=== PATIENT | female | born 1955 ===

== ENCOUNTER → 2021-04-24 14:14 | Outpatient (BNVA) | payer OTHER, SELFPAY | PROVIDERS: PCP Internal Medicine; Visit Provider Nurse Practitioner Gerontology ==

== ENCOUNTER 2022-02-19 08:05 | Outpatient (REF) | payer OTHER, SELFPAY ==
[2022-02-19 08:31] LABS: MANUAL DIFF FLAG NO
[2022-02-19 09:17] LABS: Basophils Absolute Auto 0.1 X10*3/uL (0.0-0.2); Basophils Percent Auto 0.5 % (0-2); Eosinophils Absolute Auto 0.3 X10*3/uL (0.0-0.4); Eosinophils Percent Auto 2.9 % (0-4); Hematocrit 42.9 % (37.0-47.0); Hemoglobin 13.7 g/dl (12.0-16.0); Imm Gran Abs Auto 0.04 X10*3/uL (0.00-0.03); Imm Gran Pct Auto 0.4 % (0.0-0.4); Lymphocytes Percent Auto 19.5 % (20-40); Mean Corpuscular HGB Conc 31.9 g/dl (31.0-35.0); Mean Corpuscular Hemoglobin 28.8 pg (27.0-33.0); Mean Corpuscular Volume 90.1 fL (80.0-98.0); Mean Platelet Volume 12.3 fL (9.4-12.3); Monocytes Absolute Auto 0.9 X10*3/uL (0.1-1.2); Monocytes Percent Auto 8.9 % (2-11); Neutrophils Absolute Auto 6.9 x10*3/uL (2.0-8.3); Neutrophils Percent Auto 67.8 % (45-73); Platelet Count 253 X10*3/uL (160-400); Red Blood Count 4.76 X10*6/uL (4.20-5.50); Red Cell Distribution Width 13.6 % (11.0-16.0); White Blood Count 10.1 X10*3/uL (4.8-10.8)
[2022-02-19 09:55] LABS: Alanine Aminotransferase 28 U/L (0-31); Albumin Level 4.1 g/dL (3.5-5.0); Alkaline Phosphatase 131 U/L (39-117); Anion Gap 18 (12-20); Aspartate Amino Transferase 25 U/L (5-31); Bilirubin Total 0.6 mg/dL (0.0-1.0); Blood Urea Nitrogen 11 mg/dL (9-16); Calcium 9.5 mg/dL (8.4-10.2); Carbon Dioxide 27 mmol/L (22-29); Chloride 98 mmol/L (96-108); Cholesterol 150 mg/dL; Estimated Glomerular Filt Rate > 60; Glucose Fasting 361 mg/dL (60-99); HDL Cholesterol 48 mg/dL; LDL Cholesterol Calculated 84 mg/dl; Potassium 4.3 mmol/L (3.3-5.1); Sodium 139 mmol/L (135-145); Total Protein 6.9 g/dL (6.5-8.0); Triglycerides 93 mg/dL
[2022-02-19 10:00] LABS: Creatinine Urine 273.57 mg/dL
[2022-02-19 10:02] LABS: Vitamin D 25-OH Total 60.2 ng/mL (>30)
== END 2022-02-19 08:06 | disposition home or self-care (01) ==
LOC: HO.US 08:05
PROVIDERS: Absent Provider Internal Medicine; PCP Internal Medicine; Visit Provider Surgery Vascular Surgery
DX: E11.65 Type 2 diabetes mellitus with hyperglycemia (principal); I83.12 Varicose veins of left lower extremity with inflammation; E55.9 Vitamin D deficiency, unspecified; E78.5 Hyperlipidemia, unspecified; J45.40 Moderate persistent asthma, uncomplicated; Z79.4 Long term (current) use of insulin; Z78.0 Asymptomatic menopausal state
CPT/HCPCS: 36415; 80053; 80061; 82043; 82306; 85025

== ENCOUNTER 2022-04-17 12:51 | Outpatient (REF) | payer OTHER, SELFPAY ==
--- NOTE | ~2022-04-17 | US_ITS ---
EXAMINATION: US LOWER EXTREMITY VENOUS (REFLUX EXAM), BILATERAL CLINICAL INDICATION: Varicose veins COMPARISON: Bilateral lower extremity duplex on 05/06/2012 TECHNIQUE: Color flow triplex imaging and compression Doppler was performed to evaluate both the deep and the superficial systems bilaterally. To evaluate the superficial system, the examination was performed in the upright position. Color-flow Doppler ultrasound and compression ultrasound were utilized. In addition, maneuvers were utilized to demonstrate reflux. FINDINGS: 1. DEEP VENOUS ULTRASOUND OF THE RIGHT LOWER EXTREMITY: Common Femoral Vein: Compressible, normal respiratory variation and augmented flow. Femoral Vein: Compressible, normal color flow and augmentation. Popliteal Vein: Compressible, normal augmentation. Deep Reflux: There is no evidence of reflux in the deep system in either the common femoral vein or the popliteal vein. There is no evidence of a Gorman's cyst. 2. SUPERFICIAL ULTRASOUND WITH DOPPLER OF RIGHT LOWER EXTREMITY: GREAT SAPHENOUS VEIN: Saphenofemoral Junction: 0.7 cm; Reflux: 0 ms Proximal Thigh: 0.3 cm; Reflux: 0 ms Mid Thigh: 0.2 cm; Reflux: 0 ms Above Knee: 0.3 cm; Reflux: 0 ms At Knee: 0.3 cm; Reflux: 0 ms Below Knee: 0.3 cm; Reflux: 0 ms Mid Calf: 0.2 cm; Reflux: 0 ms Ankle: 0.3 cm; Reflux: 0 ms DUPLICATED MEDIAL GREAT SAPHENOUS VEIN: Diameter: None Imaged Reflux: NA DUPLICATED LATERAL GREAT SAPHENOUS VEIN: Diameter: None Imaged Reflux: NA SMALL SAPHENOUS VEIN: Proximal: 0.4 cm; Reflux: 0 ms Distal: 0.4 cm; Reflux: 0 ms VEIN OF GIACOMINI: None Imaged. PERFORATORS: Location: [place] Size: 0.2 cm Reflux: 1428 ms VARICOSITIES: Location: None Imaged Size: NA Reflux: NA 3. DEEP VENOUS ULTRASOUND OF THE LEFT LOWER EXTREMITY: Common Femoral Vein: Compressible, normal respiratory variation and augmented flow. Femoral Vein: Compressible, normal color flow and augmentation. Popliteal Vein: Compressible, normal augmentation. Deep Reflux: There is no evidence of reflux in the deep system in either the common femoral vein or the popliteal vein. There is no evidence of a Gorman's cyst. 4. SUPERFICIAL ULTRASOUND WITH DOPPLER OF LEFT LOWER EXTREMITY: GREAT SAPHENOUS VEIN: Saphenofemoral Junction: 0.7 cm; Reflux: 0 ms Proximal Thigh: 0.8 cm; Reflux: 0 ms Mid Thigh: 0.5 cm; Reflux: 0 ms Above Knee: 0.4 cm; Reflux: 0 ms At Knee: 0.4 cm; Reflux: 0 ms Below Knee: 0.3 cm; Reflux: 0 ms Mid Calf: 0.3 cm; Reflux: 0 ms Ankle: 0.3 cm; Reflux: 0 ms DUPLICATED MEDIAL GREAT SAPHENOUS VEIN: Diameter: None Imaged Reflux: NA DUPLICATED LATERAL GREAT SAPHENOUS VEIN: Diameter: None Imaged Reflux: NA SMALL SAPHENOUS VEIN: Proximal: 0.4 cm; Reflux: 0 ms Distal: 0.2 cm; Reflux: 0 ms VEIN OF GIACOMINI: None Imaged. PERFORATORS: Location: None Imaged Size: NA Reflux: NA VARICOSITIES: Location: None Imaged Size: NA Reflux: NA US/US venous duplex LE BI IMPRESSION: 1. No evidence of DVT. 2. Right small saphenous vein reflux in the midcalf. 3. No significant reflux in the bilateral great saphenous veins or small saphenous veins.
== END 2022-04-17 12:52 | disposition home or self-care (01) ==
LOC: HO.US 12:51
PROVIDERS: Visit Provider Surgery Vascular Surgery
DX: I83.12 Varicose veins of left lower extremity with inflammation (principal)
CPT/HCPCS: 93970

== ENCOUNTER 2022-05-20 16:01 | Outpatient (REF) | payer OTHER, SELFPAY ==
[2022-05-24 05:48] LABS: HPV mRNA E6/E7 rflx Not Detected (Not Detected)
== END 2022-05-20 16:02 | disposition home or self-care (01) ==
LOC: HO.LNP 16:01
PROVIDERS: Visit Provider Obstetrics & Gynecology
DX: Z01.419 Encounter for gynecological examination (general) (routine) without abnormal findings (principal); Z11.51 Encounter for screening for human papillomavirus (HPV)
CPT/HCPCS: 87624; 88142

== ENCOUNTER 2022-07-18 11:58 | Outpatient (REF) | payer OTHER, SELFPAY | END 2022-07-18 11:59 | disposition home or self-care (01) | LOC: HO.LNP 11:58 | PROVIDERS: PCP Internal Medicine; Visit Provider Obstetrics & Gynecology | DX: L02.215 Cutaneous abscess of perineum (principal) | CPT/HCPCS: 87070; 87205 ==

== ENCOUNTER 2022-08-07 16:02 | Outpatient (REF) | payer OTHER, SELFPAY ==
--- NOTE | ~2022-08-07 | US_ITS ---
EXAMINATION: US PELVIS AND TRANSVAGINAL CLINICAL INFORMATION: Postmenopausal bleeding. COMPARISON: 10/04/2016 TECHNIQUE: Ultrasound of the pelvis is performed using both transabdominal and transvaginal transducers along with Doppler. Transvaginal imaging is performed due to inadequate visualization transabdominally. FINDINGS: UTERUS: The uterus is anteverted and measures 8.6 x 4.8 x 4.2 cm. The double wall endometrial thickness is increased at 19 mm. The endometrium is heterogeneous with cystic components, similar to the prior study from 10/04/2016. The uterus is smooth in contour and has normal myometrial echogenicity. No visible fibroid. ADNEXA: Both ovaries are visualized. There is normal color flow to the adnexa. There is no ovarian torsion. There is no pelvic ascites or fluid collection. Right ovary measures 2.3 x 1.9 x 2.2 cm for a volume of 5.0 mL. Left ovary could not be visualized. US/US pelvic and transvaginal IMPRESSION: Thickened heterogeneous endometrium with cystic components. Although appearances were similar at the time of the 2017 study, given the patient's postmenopausal status, tissue sampling is recommended, if this has not already been performed.
== END 2022-08-07 16:03 | disposition home or self-care (01) ==
LOC: HO.US 16:02
PROVIDERS: PCP Internal Medicine; Visit Provider Obstetrics & Gynecology
DX: N95.0 Postmenopausal bleeding (principal)
CPT/HCPCS: 76830; 76856

== ENCOUNTER 2022-08-19 12:21 | Outpatient (REF) | payer OTHER, SELFPAY ==
[2022-08-19 15:10] LABS: Appearance Urine Clear; Color Urine Yellow; Glucose Urine UA >=1000 mg/dL (Negative); Leukocyte Esterase Urine Negative (Negative); Nitrite Urine Negative (Negative); PH 6.5 (5.0-9.0); Specific Gravity - Urine 1.025 (1.005-1.025); UMIC TRIGGER UACC YES; Urine Blood Negative (Negative); Urine Ketones Negative (Negative); Urine Protein Negative (Neg-Trace)
[2022-08-19 15:39] LABS: Bacteria Urine None Seen (None Seen); Hyaline Casts Urine 0-2 /LPF (0-2); RBC Urine 0-2 /HPF (0-2); Squamous Epithelial Cell Urine 0-2 /HPF (0-2); UACC Culture Trigger YES
== END 2022-08-19 12:22 | disposition home or self-care (01) ==
LOC: HO.LAB 12:21
PROVIDERS: PCP Internal Medicine; Visit Provider Internal Medicine
DX: R30.0 Dysuria (principal)
CPT/HCPCS: 81001; 81003; 87086

== ENCOUNTER → 2022-08-20 15:29 | Outpatient (BNVA) | payer OTHER, SELFPAY | PROVIDERS: PCP Internal Medicine; Visit Provider Obstetrics & Gynecology | DX: Z13.89 Encounter for screening for other disorder (principal) ==

== ENCOUNTER → 2022-08-21 14:51 | Outpatient (BNVA) | payer OTHER, SELFPAY | PROVIDERS: PCP Internal Medicine; Visit Provider Obstetrics & Gynecology | DX: Z13.89 Encounter for screening for other disorder (principal) ==

== ENCOUNTER → 2022-09-23 12:44 | Outpatient (REF) | payer OTHER, SELFPAY ==
--- NOTE | 2022-09-23 12:52 | ECG_ITS ---
Test Reason : PREPROC EXAM Blood Pressure : / mmHG Vent. Rate : 100 BPM Atrial Rate : 100 BPM P-R Int : 150 ms QRS Dur : 074 ms QT Int : 344 ms P-R-T Axes : 047 043 071 degrees QTc Int : 443 ms Normal sinus rhythm Normal ECG When compared with ECG of 18-FEB-2018 12:35, No significant change was found Referred By: Ave Goyal Electronically Signed By:Kevin Giordano
== END ==
LOC: HO.CARD 12:44
PROVIDERS: PCP Internal Medicine; Visit Provider Internal Medicine
DX: Z01.810 Encounter for preprocedural cardiovascular examination (principal)
CPT/HCPCS: 93005

== ENCOUNTER → 2022-10-24 14:51 | Outpatient (BNVA) | payer OTHER, SELFPAY | PROVIDERS: PCP Internal Medicine; Visit Provider Surgery Vascular Surgery ==

== ENCOUNTER 2022-12-16 15:35 | Outpatient (AMB) | payer OTHER, SELFPAY ==
[2022-12-16 15:41] VITALS: BP 130/70; BMI 51.0
--- NOTE | 2022-12-16 15:41 | MHC.PC.OV ---
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: No Accompanied by: Self / Same As Patient Allergies lisinopril [LISINOPRIL] Allergy (Intermediate, Verified 12/16/22 15:53) COUGH nystatin [From Nystop] Allergy (Intermediate, Verified 12/16/22 15:53) RASH, ITCHY ( FROM TOPICAL POWDER), rash shrimp Allergy (Intermediate, Verified 12/16/22 15:53) Anaphylaxis, swollen insulin detemir [From Levemir U-100 Insulin] Adverse Reaction (Intermediate, Verified 12/16/22 15:58) Abdominal Pain insulin glargine [From Toujeo SoloStar U-300 Insulin] Adverse Reaction (Intermediate, Verified 12/16/22 15:58) Abdominal Pain Medication List - Last Reconciled 12/16/[address] Goyal MD albuterol sulfate 90 mcg/actuation (ProAir RespiClick) 2 inhalations inhalation QID PRN 30 days albuterol sulfate 2.5 mg (3 mL) PO QID PRN albuterol sulfate 90 mcg/actuation (ProAir HFA) 2 puffs inhalation Q6H PRN 30 days aspirin 81 mg PO DAILY 90 days atorvastatin 40 mg PO BEDTIME 90 days blood sugar diagnostic ([employer] Company[employer] Ultra Blue Test Strip) 1 strip miscellaneous BID buspirone 7.5 mg PO BID cetirizine (Allergy Relief (cetirizine)) 10 mg PO DAILY PRN 90 days hydrochlorothiazide 25 mg PO DAILY 90 days insulin glargine (Lantus Solostar U-100 Insulin) 50 units (0.5 mL) subcut QPM 90 days insulin regular hum U-500 conc (Humulin R U-500 (Concentrated) Insulin) 150 units subcut BID insulin regular hum U-500 conc (Humulin R U-500 (Conc) Insulin Kwikpen) 150 units subcut BID metformin 1,000 mg PO BID 90 days pen needle, diabetic (BD Ultra-Fine Short Pen Needle) To use 4 times daily pen needle, diabetic (BD Ultra-Fine Short Pen Needle) Use 1 needle once a day [pen needles 31 gauge x 8 mm As directed] sertraline 25 mg PO DAILY 90 days sitagliptin phosphate (Januvia) 100 mg PO DAILY valsartan 320 mg PO DAILY 90 days Tobacco use date assessed: 12/16/22 Fall risk assessment: No Falls in past year Last assessed Fall Risk: 12/16/22 Dental Screening Dental Screen Date: 12/16/22 Did you have a dental visit in the last 12 months?: No Did you have a dental problem in the last 6 months where you did not have access to dental care?: No Was dental information given to patient?: Patient has dentist HPI HPI Comments History of Present Illness Details This is a 67-year-old female with diabetes mellitus type 2, hypertension, pure hypercholesterolemia and morbid obesity that comes today complaining of a cough. She completed a course of prednisone and Z-Kyle. No fever and no wheezing. A1c elevated and I will refer her to Endocrinology and increase her insulin. Blood pressure stable. Last LDL was within goal and this will be repeated. She is morbidly obese with a BMI of 51 and declines weight loss surgery. Was advised to do diet and exercise as tolerated. [facility] Medical History Diabetes mellitus DM2 (diabetes mellitus, type 2) Essential hypertension Hypovitaminosis D Moderate asthma Obesity due to excess calories Pure hypercholesterolemia Venous (peripheral) insufficiency Surgical History History of cataract surgery History of section History of vocal cord polypectomy Family History Father No problems noted. Mother Colon cancer Lung cancer CVD (cardiovascular disease) Diabetes Hypertension Brother Stroke Brother Melanoma Maternal Uncle Cancer Social History Household Members: Spouse Housing: House Alcohol intake: never Patient Tobacco Use Status: Never used Tobacco e-Cigarette/Vaping Use: Never Used Second Hand Smoke Exposure: No service: No Current occupational status: unemployed Cognitive needs: Yes Hearing needs: No Vision needs: No Female Reproductive History Menstrual Age of Menarche: 14 Questionnaire PHQ-9 Over the last 2 weeks, how often have you been bothered by any of the following problems? 1. Little interest or pleasure in doing things: not at all 2. Feeling down, depressed, or hopeless: not at all 3. Trouble falling or staying asleep, or sleeping too much: not at all 4. Feeling tired or having little energy: not at all 5. Poor appetite or overeating: not at all 6. Feeling bad about yourself - or that you are a failure or have let yourself or your family down: not at all 7. Trouble concentrating on things, such as reading the newspaper or watching television: not at all 8. Moving or speaking so slowly that other people could have noticed. Or the opposite - being so fidgety or restless that you have been moving around a lot more than usual: not at all 9. Thoughts that you would be better off or of hurting yourself in some way: not at all Total score: 0 Depression Screening Interpretation: Negative 22987 - PHQ-9 Billing: Yes Source: Developed by Drs. Marco Paul, Nadiya Wallace, Manav Sun and colleagues, with an educational kimberly from [employer]. Thrive Questionnaire Date Thrive assessed: 12/16/22 I am a: Patient What is your living situation today?: I have a steady place to live Within the past 12 months, did the food you bought not last and you didn't have the money to get more?: Never true Within the past 12 months, did you worry whether your food would run out before you got money to buy more?: Never true Do you have trouble paying for medicines?: No Do you have trouble getting transportation to medical appointments?: No Do you have trouble paying your heating and electricity bill?: No Do you have trouble taking care of your child, family member or friend?: No Do you have trouble with day-to-day activities such as bathing, preparing meals, shopping, managing finances, etc.?: No Are you currently unemployed and looking for a job?: No Are you interested in more education?: No Please select the resources that you would like help with: None Currently or been in a relationship where the following occur: no concerns reported AUDIT C Alcohol Use Questionnaire (AUDIT-C) 1. How often do you have a drink containing alcohol?: Never Total Score: 0 SHAD-7 AMB Questionnaire SHAD-7 Date SHAD - 7 assessed: 12/16/22 Feeling nervous, anxious, or on edge: 0 = Not at all Not being able to stop or control worryin = Not at all Worrying too much about different things: 0 = Not at all Trouble relaxin = Not at all Being so restless that it is hard to sit still: 0 = Not at all Becoming easily annoyed or irritable: 0 = Not at all Feeling afraid as if something awful might happen: 0 = Not at all Total SHAD-7 score (0-4 normal; 5-9 mild; 10-14 moderate; 15-21 severe): 0 Source: Developed by Drs. Marco Paul, Nadiya Wallace, Manav Sun and colleagues, with an educational kimberly from [employer]. SHAD-7 Assessment Billing SHAD-7 Assessment Tool: SHAD-7 Assessment 73149 Review of Systems Const All systems reviewed & are unremarkable except as noted in HPI and below Eyes Reports no additional complaints, Denies change in vision and Denies other visual disturbances Card Denies chest pain at rest, Denies chest pain with activity, Denies edema, Denies irregular heart rhythm, Denies claudication, Denies dyspnea, Denies dyspnea on exertion, Denies orthopnea, Denies paroxysmal nocturnal dyspnea and Denies slow heart rate Resp Reports cough, Denies dyspnea and Denies dyspnea on exertion GI Denies abdominal pain, Denies change in bowel habits, Denies excessive flatus, Denies nausea and Denies vomiting Denies urinary incontinence, Denies urinary hesitancy and Denies urinary urgency Musc Denies abnormal gait, Denies atrophy, Denies deformity and Denies limited range of motion Skin/Breast Denies bleeding lesions, Denies changing lesions and Denies rash Neuro Denies abnormal gait and Denies lack of coordination Physical exam (Primary Care) Vital Signs: Last Vital Signs BP 130/70 12/16/22 15:41 BMI result Body Mass Index 51.0 Tobacco/Smoking Status: Tobacco use Status Tobacco use date assessed 12/16/22 12/16/22 15:50 Patient Tobacco Use Status Never used Tobacco 12/16/22 15:50 e-Cigarette/Vaping Use Never Used 12/16/22 15:50 PHQ-9: PHQ-9 Score PHQ-9: Total score 0 12/16/22 15:50 Depression Screening Interpretation: Negative Thrive Assessment: Date of Thrive Assessment Date Thrive assessed 12/16/22 12/16/22 15:50 Currently or been in a relationship where the following occur: no concerns reported Eyes General: appearance normal, both eyes and all related structures Eyelids: Yes eyelids normal Conjunctivae: conjunctivae normal Neck Neck: Yes normal visual inspection and Yes supple Resp Effort & Inspection: normal respiratory effort Auscultation: clear to auscultation bilaterally Cardio Jugular venous distension: no JVD Rate: regular rate Rhythm: regular rhythm Heart sounds: S1 normal heart sound present and S2 normal heart sound present Extrem General: Yes full ROM Results AMB Hemoglobin A1c AMB Hemoglobin A1c 14.0 % Last Edit by KHALIDA Kee on 12/16/22 15:52 Results Reviewed Results Reviewed: Laboratory Last Values Hgb A1c (Clinic) 14.0 % (4.0-6.0) H 12/16/22 15:51 Assessment and Plan Assessment & Plan (1) Morbidly obese: Code(s): E66.01 - Morbid (severe) obesity due to excess calories Plan: Start diet and exercise. BMI goal is less than 30. (2) DM2 (diabetes mellitus, type 2): Code(s): E11.9 - Type 2 diabetes mellitus without complications Qualifiers: Diabetes mellitus buttermaker continuous churn insulin use: with buttermaker continuous churn use Diabetes mellitus complication status: with hyperglycemia Qualified Code(s): E11.65 - Type 2 diabetes mellitus with hyperglycemia; Z79.4 - custodial (current) use of insulin Plan: Continue short-acting insulin. Increase long-acting insulin from 50 units to 55 units once a day. A1c goal is equal or less than 7%. (3) Essential hypertension: Code(s): I10 - Essential (primary) hypertension Plan: Continue Valsartan. Blood pressure goal is equal or less than 130/80. (4) Pure hypercholesterolemia: Code(s): E78.00 - Pure hypercholesterolemia, unspecified Plan: Continue statins. Repeat lipid panel. LDL goal is less than 70. Orders: Orders Lipid Panel Today E78.5 - Hyperlipidemia, unspecified Microalbumin, Random (w Creat) Today E11.9 - Type 2 diabetes mellitus without complications Vitamin D 25-OH Total Today E55.9 - Vitamin D deficiency, unspecified Comprehensive [place]. Panel Fast Today E11.65 - Type 2 diabetes mellitus with hyperglycemia, Z79.4 - lobsterman (current) use of insulin AMB Hemoglobin A1c Today E11.9 - Type 2 diabetes mellitus without complications Referrals Endocrinology Referral E11.65 - Type 2 diabetes mellitus with hyperglycemia, Z79.4 - lobsterman (current) use of insulin Medications: New benzonatate 100 mg PO BID 10 days PRN 20 caps 0RF cough Changed From insulin regular hum U-500 conc (Humulin R U-500 (Concentrated) Insulin) 200 units (0.4 mL) subcut BID 30 days 24 mL 6RF To insulin regular hum U-500 conc (Humulin R U-500 (Concentrated) Insulin) 150 units subcut BID From insulin glargine (Lantus Solostar U-100 Insulin) 50 units (0.5 mL) subcut QPM 90 days 45 mL 2RF E11.65 - Type 2 diabetes mellitus with hyperglycemia, Z79.4 - custodial (current) use of insulin To insulin glargine (Lantus Solostar U-100 Insulin) 55 units (0.55 mL) subcut QPM 90 days 49.5 mL 2RF E11.65 - Type 2 diabetes mellitus with hyperglycemia, Z79.4 - lobsterman (current) use of insulin Discontinued albuterol sulfate 90 mcg/actuation (ProAir RespiClick) Discontinued Reason: Patient Completed Course 2 inhalations inhalation QID 30 days PRN 1 ea 4RF shortness of breath Coding Level of Care Code Est Pt Level 4 (27094) Diagnoses Morbidly obese E66.01 DM2 (diabetes mellitus, type 2) E11.65; Z79.4 Diabetes mellitus buttermaker continuous churn insulin use: with buttermaker continuous churn use Diabetes mellitus complication status: with hyperglycemia Essential hypertension I10 Pure hypercholesterolemia E78.00 Additional Codes SHAD-7 Assessment Billing - SHAD-7 Assessment Tool: SHAD-7 Assessment 73266 ([id number]) Time Spent (min) 23
== END 2022-12-16 16:08 | disposition home or self-care (01) ==
PROVIDERS: PCP Internal Medicine; Visit Provider Internal Medicine
DX: E11.65 Type 2 diabetes mellitus with hyperglycemia (principal); E66.01 Morbid (severe) obesity due to excess calories; Z79.4 Long term (current) use of insulin; Z68.43 Body mass index [BMI] 50.0-59.9, adult; I10 Essential (primary) hypertension; E11.9 Type 2 diabetes mellitus without complications; E78.00 Pure hypercholesterolemia, unspecified
CPT/HCPCS: 83036; 99214

== ENCOUNTER 2023-04-04 11:06 | Outpatient (REF) | payer OTHER, SELFPAY ==
[2023-04-04 12:44] LABS: Anion Gap 14 (12-20); Blood Urea Nitrogen 8 mg/dL (9-16); Calcium 9.7 mg/dL (8.4-10.2); Carbon Dioxide 29 mmol/L (22-29); Chloride 100 mmol/L (96-108); Estimated Glomerular Filt Rate > 60; Potassium 4.1 mmol/L (3.3-5.1); Sodium 139 mmol/L (135-145)
[2023-04-04 14:22] LABS: Creatinine Urine 59.21 mg/dL; Total Protein Urine Random < 7 mg/dL (<12)
[2023-04-07 23:09] LABS: Prot Elec - Albumin 3.9 g/dL (3.8-4.8); Prot Elec - Alpha1 0.3 g/dL (0.2-0.3); Prot Elec - Beta 1 0.5 g/dL (0.4-0.6); Prot Elec - Beta 2 0.4 g/dL (0.2-0.5); Prot Elec - Gamma 0.8 g/dL (0.8-1.7); Prot Elec - Total Protein 6.9 g/dL (6.1-8.1)
== END 2023-04-04 11:07 | disposition home or self-care (01) ==
LOC: HO.LAB 11:06
PROVIDERS: PCP Internal Medicine; Visit Provider Internal Medicine Nephrology
DX: R80.9 Proteinuria, unspecified (principal)
CPT/HCPCS: 36415; 80051; 82310; 82565; 82570; 84156; 84165; 84520

== ENCOUNTER 2023-04-07 15:02 | Outpatient (AMB) | payer OTHER, SELFPAY ==
[2023-04-07 15:23] VITALS: BP 150/70; PULSE 107; BMI 51.5
--- NOTE | 2023-04-07 15:23 | HO.NEPHOV ---
HPI HPI Comments History of Present Illness Details Claudette has longstanding diabetes. She has history of microalbuminuria. She was seen for follow-up. I have initiated her on Farxiga at the last visit. She had vaginal candidiasis and had taken treatment with total resolution of it. She does not have any urinary symptoms, fever, chest pain, shortness of breath, nausea, vomiting, diarrhea or pedal edema. Her A1c has significantly improved. She is trying to lose weight and is closely followed by her PCP and general lot attendant. She is on angiotensin receptor jose luis. Her blood pressure has been at goal. [facility] Medical History Venous (peripheral) insufficiency Obesity due to excess calories DM2 (diabetes mellitus, type 2) Moderate asthma Hypovitaminosis D Pure hypercholesterolemia Essential hypertension Diabetes mellitus Surgical History History of cataract surgery History of vocal cord polypectomy History of section Family History Father No problems noted. Mother Colon cancer Lung cancer CVD (cardiovascular disease) Diabetes Hypertension Brother Stroke Brother Melanoma Maternal Uncle Cancer Social History Household Members: Spouse Housing: House Alcohol intake: never Patient Tobacco Use Status: Never used Tobacco e-Cigarette/Vaping Use: Never Used Second Hand Smoke Exposure: No service: No Current occupational status: unemployed Cognitive needs: Yes Hearing needs: No Vision needs: No Female Reproductive History Menstrual Age of Menarche: 14 Vital Signs 04/07/23 15:23 04/07/23 15:39 Height 5 ft 2 in Weight 281 lb 8 oz BMI 51.5 BP 150/70 H 120/80 Blood Pressure Location Lt brachial Position Sitting Pulse 107 H Pulse Source Pulse Oximeter Physical Exam Vital Signs: Last Vital Signs Pulse 107 H 04/07/23 15:23 BP 120/80 04/07/23 15:39 BMI result Body Mass Index 51.5 Const General: comfortable and no acute distress Orientation/consciousness: patient oriented x3 HEENT Head: Yes normocephalic Mouth: Normal oral and palatal mucosa present Eyes EOM: EOMs intact bilaterally Neck Neck: Yes supple Resp Auscultation: clear to auscultation bilaterally Cardio Jugular venous distension: no JVD Rate: regular rate Heart sounds: Murmur heart sound present GI Palpation (GI): Soft to palpation Auscultation: normal bowel sounds General: Yes no CVA tenderness Back/Spine/Pelvis Back: no CVA tenderness Skin General skin exam: no rashes or lesions noted Neuro General: patient oriented x3 and moves all extremities Extrem General: Yes no pedal edema Assessment & Plan Assessment & Plan (1) Microalbuminuria: Code(s): R80.9 - Proteinuria, unspecified (2) Essential hypertension: Code(s): I10 - Essential (primary) hypertension Plan Ms. Lynch has history of microalbuminuria. She has obesity. Her blood sugars are getting better controlled. She is tolerating Farxiga. She needs to lose weight. She is at risk for secondary FSGS. She is tolerating current dose of ARB & Farxiga. She needs close follow up with her general lot attendant. She should avoid nonsteroidal anti-inflammatory medications and remain well hydrated. I did not make any changes today. All her questions were answered. Follow-up given and follow-up per 24 urine collection study was ordered. Time for retrieval of data, patient encounter and documenation 23 minutes. Orders: Orders Protein, 24 Hr Urine Group 04/07/23 R80.9 - Proteinuria, unspecified Coding Level of Care Code Est Pt Level 3 (77193) Diagnoses Microalbuminuria R80.9 Essential hypertension I10
[2023-04-07 15:39] VITALS: BP 120/80
== END 2023-04-07 15:44 | disposition home or self-care (01) ==
PROVIDERS: PCP Internal Medicine; Visit Provider Internal Medicine Nephrology
DX: R80.9 Proteinuria, unspecified (principal); I10 Essential (primary) hypertension; Z87.448 Personal history of other diseases of urinary system
CPT/HCPCS: 99213

== ENCOUNTER → 2023-04-07 15:02 | Outpatient (BNVA) | payer OTHER, SELFPAY | PROVIDERS: PCP Internal Medicine; Visit Provider Internal Medicine Nephrology ==

== ENCOUNTER 2023-07-14 08:20 | Outpatient (AMB) | payer OTHER, SELFPAY ==
[2023-07-14 08:31] VITALS: BP 132/60; BMI 49.7
--- NOTE | 2023-07-14 08:31 | A.OFFPC_ITS ---
Vital Signs 07/14/23 08:31 Height 5 ft 2 in Weight 272 lb BMI 49.7 BP 132/60 Blood Pressure Location Lt brachial Position Sitting Intake Visit Reasons: pre-op [facility] Intake Note: Patient here for [facility] pre-op clearance Hysterectomy 08/26/23 Inletter Required: No Accompanied by: Self / Same As Patient Allergies lisinopril [LISINOPRIL] Allergy (Intermediate, Verified 07/14/23 08:45) COUGH nystatin [From Nystop] Allergy (Intermediate, Verified 07/14/23 08:45) RASH, ITCHY ( FROM TOPICAL POWDER), rash shrimp Allergy (Intermediate, Verified 07/14/23 08:45) Anaphylaxis, swollen dulaglutide [From Trulicity] Adverse Reaction (Intermediate, Verified 07/14/23 09:00) Nausea and Vomiting insulin detemir [From Levemir U-100 Insulin] Adverse Reaction (Intermediate, Verified 07/14/23 08:45) Abdominal Pain insulin glargine [From Toujeo SoloStar U-300 Insulin] Adverse Reaction (Intermediate, Verified 07/14/23 08:45) Abdominal Pain Medication List - Last Reconciled 07/14/[address] Goyal MD albuterol sulfate 2.5 mg (3 mL) PO QID PRN albuterol sulfate 90 mcg/actuation (ProAir HFA) 2 puffs inhalation Q6H PRN 30 days aspirin 81 mg PO DAILY 90 days atorvastatin 40 mg PO BEDTIME 90 days blood sugar diagnostic (BooyahTouch Ultra Test strips) test 4 times per day blood sugar diagnostic 1 strip miscellaneous BID buspirone 7.5 mg PO BID cetirizine (Allergy Relief (cetirizine)) 10 mg PO DAILY PRN 90 days dapagliflozin propanediol (Farxiga) 5 mg PO DAILY 30 days hydrochlorothiazide 25 mg PO DAILY 90 days insulin glargine (Lantus Solostar U-100 Insulin) 55 units (0.55 mL) subcut QPM 90 days insulin regular hum U-500 conc (Humulin R U-500 (Concentrated) Insulin) 125 units subcut BID medroxyprogesterone (Provera) 10 mg PO DAILY metformin 1,000 mg PO BID 90 days montelukast 10 mg PO BEDTIME 90 days pen needle, diabetic (BD Ultra-Fine Short Pen Needle) To use 4 times daily pen needle, diabetic (BD Ultra-Fine Short Pen Needle) Use 1 needle once a day [pen needles 31 gauge x 8 mm As directed] sertraline 25 mg PO DAILY 90 days sitagliptin phosphate (Januvia) 100 mg PO DAILY valsartan 320 mg PO DAILY 90 days Ventolin HFA 90 mcg/actuation (albuterol sulfate) 2 puffs inhalation Q6H PRN 30 days NS Tobacco use date assessed: 07/14/23 Fall risk assessment: No Falls in past year Last assessed Fall Risk: 07/14/23 Dental Screening Dental Screen Date: 07/14/23 Did you have a dental visit in the last 12 months?: No Did you have a dental problem in the last 6 months where you did not have access to dental care?: No Was dental information given to patient?: Patient has dentist HPI HPI Comments History of Present Illness0 Details This is a 67-year-old female with diabetes mellitus type 2 on long-term current use insulin, hypertension, pure hypercholesterolemia and moderate asthma that comes today for preop evaluation for hysterectomy scheduled for August 2023. Her A1c is elevated and I will increase insulin and Farxiga. Januvia was replaced by Ozempic. Blood pressure stable. Lipid panel will be order. On long-acting inhaler and use rescue inhaler as needed for her asthma which is 2 to 3 times a month. She is morbidly obese with a BMI of 49.7 and was advised to do diet and exercise as tolerated to reach BMI goal less than 30. Walks with a walker for gait stability. Has 4 Mets of ADLs. EKG and labs pending for medical clearance. Will see crime prevention worker next month for clearance. [facility] Medical History Venous (peripheral) insufficiency Obesity due to excess calories DM2 (diabetes mellitus, type 2) Moderate asthma Hypovitaminosis D Pure hypercholesterolemia Essential hypertension Diabetes mellitus Surgical History History of cataract surgery History of vocal cord polypectomy History of section Family History Father No problems noted. Mother Colon cancer Lung cancer CVD (cardiovascular disease) Diabetes Hypertension Brother Stroke Brother Melanoma Maternal Uncle Cancer Social History Household Members: Spouse Housing: House Alcohol intake: never Patient Tobacco Use Status: Never used Tobacco e-Cigarette/Vaping Use: Never Used Second Hand Smoke Exposure: No service: No Current occupational status: unemployed Cognitive needs: Yes Hearing needs: No Vision needs: No Female Reproductive History Menstrual Age of Menarche: 14 Questionnaire PHQ-9 Over the last 2 weeks, how often have you been bothered by any of the following problems? 1. Little interest or pleasure in doing things: not at all 2. Feeling down, depressed, or hopeless: not at all 3. Trouble falling or staying asleep, or sleeping too much: not at all 4. Feeling tired or having little energy: not at all 5. Poor appetite or overeating: not at all 6. Feeling bad about yourself - or that you are a failure or have let yourself or your family down: not at all 7. Trouble concentrating on things, such as reading the newspaper or watching television: not at all 8. Moving or speaking so slowly that other people could have noticed. Or the opposite - being so fidgety or restless that you have been moving around a lot more than usual: not at all 9. Thoughts that you would be better off or of hurting yourself in some way: not at all Total score: 0 Depression Screening Interpretation: Negative Depression Screening Done: Yes 82176 - PHQ-9 Billing: Yes Source: Developed by Drs. Marco Paul, Nadiya Wallace, Manav Sun and colleagues, with an educational kimberly from [employer]. Thrive Questionnaire Date Thrive assessed: 07/14/23 I am a: Patient What is your living situation today?: I have a steady place to live Within the past 12 months, did the food you bought not last and you didn't have the money to get more?: Never true Within the past 12 months, did you worry whether your food would run out before you got money to buy more?: Never true Do you have trouble paying for medicines?: No Do you have trouble getting transportation to medical appointments?: No Do you have trouble paying your heating and electricity bill?: No Do you have trouble taking care of your child, family member or friend?: No Do you have trouble with day-to-day activities such as bathing, preparing meals, shopping, managing finances, etc.?: Yes Are you currently unemployed and looking for a job?: No Are you interested in more education?: No Please select the resources that you would like help with: None Currently or been in a relationship where the following occur: no concerns reported THRIVE Score: 0 AUDIT C Alcohol Use Questionnaire (AUDIT-C) 1. How often do you have a drink containing alcohol?: Never Total Score: 0 Score Reviewed/Action Taken: No SHAD-7 AMB Questionnaire SHAD-7 Date SHAD - 7 assessed: 07/14/23 Feeling nervous, anxious, or on edge: 1 = Several days Not being able to stop or control worryin = Not at all Worrying too much about different things: 0 = Not at all Trouble relaxin = Not at all Being so restless that it is hard to sit still: 0 = Not at all Becoming easily annoyed or irritable: 0 = Not at all Feeling afraid as if something awful might happen: 0 = Not at all Total SHAD-7 score (0-4 normal; 5-9 mild; 10-14 moderate; 15-21 severe): 1 Source: Developed by Drs. Marco Paul, Nadiya Wallace, Manav Sun and colleagues, with an educational kimberly from [employer]. SHAD-7 Assessment Billing SHAD-7 Assessment Tool: SHAD-7 Assessment 50418 Review of Systems Const All systems reviewed & are unremarkable except as noted in HPI and below Eyes Reports no additional complaints, Denies change in vision and Denies other visual disturbances Card Denies chest pain at rest, Denies chest pain with activity, Denies edema, Denies irregular heart rhythm, Denies claudication, Denies dyspnea, Denies dyspnea on exertion, Denies orthopnea, Denies paroxysmal nocturnal dyspnea and Denies slow heart rate Resp Denies cough, Denies dyspnea and Denies dyspnea on exertion GI Denies abdominal pain, Denies change in bowel habits, Denies excessive flatus, Denies nausea and Denies vomiting Denies urinary incontinence, Denies urinary hesitancy and Denies urinary urgency Musc Denies abnormal gait, Denies atrophy, Denies deformity and Denies limited range of motion Skin/Breast Denies bleeding lesions, Denies changing lesions and Denies rash Neuro Denies abnormal gait, Denies behavioral changes and Denies lack of coordination Psych Denies behavioral changes Physical exam (Primary Care) Vital Signs: Last Vital Signs BP 132/60 07/14/23 08:31 BMI result Body Mass Index 49.7 Tobacco/Smoking Status: Tobacco use Status Tobacco use date assessed 07/14/23 07/14/23 08:37 Patient Tobacco Use Status Never used Tobacco 07/14/23 08:37 e-Cigarette/Vaping Use Never Used 07/14/23 08:37 PHQ-9: PHQ-9 Score PHQ-9: Total score 0 07/14/23 09:30 Depression Screening Interpretation: Negative Thrive Assessment: Date of Thrive Assessment Date Thrive assessed 07/14/23 07/14/23 08:37 Currently or been in a relationship where the following occur: no concerns reported Const Limitations: ambulation with walker Eyes General: appearance normal, both eyes and all related structures Eyelids: Yes eyelids normal Conjunctivae: conjunctivae normal Neck Neck: Yes normal visual inspection and Yes supple Resp Effort & Inspection: normal respiratory effort Auscultation: clear to auscultation bilaterally Cardio Jugular venous distension: no JVD Rate: regular rate Rhythm: regular rhythm Heart sounds: S1 normal heart sound present and S2 normal heart sound present Extrem General: Yes full ROM Results AMB Hemoglobin A1c AMB Hemoglobin A1c 12.1 % Last Edit by KHALIDA Kee on 07/14/23 08: 38 Results Reviewed Results Reviewed: Laboratory Last Values Hgb A1c (Clinic) 12.1 % (4.0-6.0) H 07/14/23 08:31 Assessment and Plan Assessment & Plan (1) Preop cardiovascular exam: Code(s): Z01.810 - Encounter for preprocedural cardiovascular examination Plan: EKG and labs pending. Patient will go to Cardiology for medical clearance for hysterectomy. (2) Morbidly obese: Code(s): E66.01 - Morbid (severe) obesity due to excess calories Plan: Start diet and exercise as tolerated. BMI goal is less than 30. (3) Diabetes mellitus: Code(s): E11.9 - Type 2 diabetes mellitus without complications Qualifiers: Diabetes mellitus type: type 2 Diabetes mellitus technician terminal and repeater insulin use: with technician terminal and repeater use Diabetes mellitus complication status: with hyperglycemia Qualified Code(s): E11.65 - Type 2 diabetes mellitus with hyperglycemia; Z79.4 - half-way (current) use of insulin Plan: Increase Farxiga on long-acting insulin. Continue short-acting insulin. Discontinue Januvia. Start Ozempic. A1c goal is equal or less than 7%. Use Trulicity in the past causing nausea and vomiting as well as abdominal pain. (4) Essential hypertension: Code(s): I10 - Essential (primary) hypertension Plan: Continue valsartan and hydrochlorothiazide. Blood pressure goal is equal or less than 130/80. (5) Pure hypercholesterolemia: Code(s): E78.00 - Pure hypercholesterolemia, unspecified Plan: Continue statins. Repeat lipid panel. LDL goal is less than 70. (6) Moderate asthma: Code(s): J45.909 - Unspecified asthma, uncomplicated Qualifiers: Asthma persistence: persistent Asthma complication type: uncomplicated Qualified Code(s): J45.40 - Moderate persistent asthma, uncomplicated Plan: Continue long-acting inhaler. Use rescue inhaler as needed. Orders: Orders Vitamin D 25-OH Total Today E55.9 - Vitamin D deficiency, unspecified Complete Blood Count Auto Diff Today D64.9 - Anemia, unspecified Vitamin B12 and Folate Today E53.8 - Deficiency of other specified B group vitamins Comprehensive Richardson. Panel Fast Today E66.01 - Morbid (severe) obesity due to excess calories AMB Hemoglobin A1c Today E11.9 - Type 2 diabetes mellitus without complications ECG 12 lead EKG Today Z01.810 - Encounter for preprocedural cardiovascular examination Lipid Panel Today E78.5 - Hyperlipidemia, unspecified Microalbumin, Random (w Creat) Today E11.9 - Type 2 diabetes mellitus without complications Thyroid Stimulating Hormone Today E66.01 - Morbid (severe) obesity due to excess calories Medications: New semaglutide (Ozempic) for 4 weeks 0.25 mg (0.368 mL) subcut QWEEK 28 days 1.472 mL 1RF E11.9 - Type 2 diabetes mellitus without complications dapagliflozin propanediol (Farxiga) 10 mg PO DAILY 90 days 90 tabs 1RF E11.9 - Type 2 diabetes mellitus without complications Changed From insulin glargine (Lantus Solostar U-100 Insulin) 55 units (0.55 mL) subcut QPM 90 days 49.5 mL 2RF E11.65 - Type 2 diabetes mellitus with hyperglycemia, Z79.4 - intermediate card tender (current) use of insulin To insulin glargine (Lantus Solostar U-100 Insulin) 60 units (0.6 mL) subcut QPM 90 days 54 mL 2RF E11.65 - Type 2 diabetes mellitus with hyperglycemia, Z79.4 - intermediate card tender (current) use of insulin Discontinued sitagliptin phosphate (Januvia) Discontinued Reason: Patient Completed Course 100 mg PO DAILY 90 tabs 1RF dapagliflozin propanediol (Farxiga) Discontinued Reason: Patient Completed Course 5 mg PO DAILY 30 days 30 tabs 8RF Coding Level of Care Code Est Pt Level 4 (19940) Diagnoses Preop cardiovascular exam Z01.810 Morbidly obese E66.01 Type 2 diabetes mellitus with hyperglycemia, with long-term current use of insulin E11.65; Z79.4 Diabetes mellitus type: type 2 Diabetes mellitus [facility] insulin use: with technician terminal and repeater use Diabetes mellitus complication status: with hyperglycemia Essential hypertension I10 Pure hypercholesterolemia E78.00 Moderate persistent asthma without complication J45.40 Asthma persistence: persistent Asthma complication type: uncomplicated Additional Codes SHAD-7 Assessment Billing - SHAD-7 Assessment Tool: SHAD-7 Assessment 70793 ([id number]) Time Spent (min) 23
== END 2023-07-14 09:04 | disposition home or self-care (01) ==
PROVIDERS: PCP Internal Medicine; Visit Provider Internal Medicine
DX: E11.65 Type 2 diabetes mellitus with hyperglycemia (principal); E66.01 Morbid (severe) obesity due to excess calories; Z68.42 Body mass index [BMI] 45.0-49.9, adult; E11.9 Type 2 diabetes mellitus without complications; Z79.4 Long term (current) use of insulin; Z01.810 Encounter for preprocedural cardiovascular examination; I10 Essential (primary) hypertension; E78.00 Pure hypercholesterolemia, unspecified; J45.40 Moderate persistent asthma, uncomplicated
CPT/HCPCS: 83036; 99214

== ENCOUNTER 2023-11-11 14:00 | Outpatient (REF) | payer OTHER, SELFPAY ==
[2023-11-11 14:51] LABS: Creatinine, mg/dL 40.45; Protein mg/dL < 7 mg/dL
[2023-11-11 20:42] LABS: Creatinine, 24Hr Urine 0.7 G/Day (1.0-2.0); Protein 24 Hr Urine < 130 mg/Day (<150); Total Volume 24 Hour Urine 1850 mL
== END 2023-11-11 14:01 | disposition home or self-care (01) ==
LOC: HO.LNP 14:00
PROVIDERS: Visit Provider Internal Medicine Nephrology
DX: R80.9 Proteinuria, unspecified (principal)
CPT/HCPCS: 84156

== ENCOUNTER 2023-11-25 13:50 | Outpatient (AMB) | payer OTHER, SELFPAY ==
--- NOTE | 2023-11-25 14:05 | HO.NEPHOV ---
Vital Signs 11/25/23 14:07 Height 5 ft 2 in Weight 260 lb 4 oz BMI 47.6 BP 130/60 Blood Pressure Location Lt brachial Position Sitting Pulse 101 H Pulse Source Pulse Oximeter Pulse Oximetry (%) 95 Oxygen Delivery Method Room Air Intake Visit Reasons: 6M follow up/ LVM [employer] Analyst Required: No Accompanied by: Self / Same As Patient Allergies lisinopril [LISINOPRIL] Allergy (Intermediate, Verified 11/25/23 14:08) COUGH nystatin [From Nystop] Allergy (Intermediate, Verified 11/25/23 14:08) RASH, ITCHY ( FROM TOPICAL POWDER), rash shrimp Allergy (Intermediate, Verified 11/25/23 14:08) Anaphylaxis, swollen dulaglutide [From Trulicity] Adverse Reaction (Intermediate, Verified 11/25/23 14:08) Nausea and Vomiting insulin detemir [From Levemir U-100 Insulin] Adverse Reaction (Intermediate, Verified 11/25/23 14:08) Abdominal Pain insulin glargine [From Toujeo SoloStar U-300 Insulin] Adverse Reaction (Intermediate, Verified 11/25/23 14:08) Abdominal Pain HPI Comments Details: Claudette has longstanding diabetes. She is on Ozempic. She is on Farxiga. She has lost a lot of weight. She has history of microalbuminuria. She was seen for follow-up. She is on Farxiga and has been having vaginal candidiasis which she currently has it. She does not have any urinary symptoms, fever, chest pain, shortness of breath, nausea, vomiting, diarrhea or pedal edema. Her A1c has significantly improved. She is trying to lose weight and is closely followed by her PCP and consumer safety officer. She is on angiotensin receptor jose luis. Her blood pressure has been at goal. [facility] Medical History (Updated 11/25/23 @ 14:23 by Dandre An MD) Venous (peripheral) insufficiency Obesity due to excess calories DM2 (diabetes mellitus, type 2) Moderate asthma Hypovitaminosis D Pure hypercholesterolemia Essential hypertension Diabetes mellitus Surgical History (Updated 11/25/23 @ 14:11 by Miguelina Pat MA) History of hysterectomy History of cataract surgery History of vocal cord polypectomy History of section Family History Father No problems noted. Mother Colon cancer Lung cancer CVD (cardiovascular disease) Diabetes Hypertension Brother Stroke Brother Melanoma Maternal Uncle Cancer Social History Household Members: Spouse Housing: House Alcohol intake: never Patient Tobacco Use Status: Never used Tobacco e-Cigarette/Vaping Use: Never Used Second Hand Smoke Exposure: No service: No Current occupational status: unemployed Cognitive needs: Yes Hearing needs: No Vision needs: No Female Reproductive History Menstrual Age of Menarche: 14 Physical Exam Vital Signs: Last Vital Signs Pulse 101 H 11/25/23 14:07 BP 130/60 11/25/23 14:07 Pulse Ox 95 11/25/23 14:07 Oxygen Delivery Method Room Air 11/25/23 14:07 BMI result Body Mass Index 47.6 Const General: comfortable and no acute distress Orientation/consciousness: patient oriented x3 HEENT Head: Yes normocephalic Mouth: Normal oral and palatal mucosa present Eyes EOM: EOMs intact bilaterally Neck Neck: Yes supple Resp Auscultation: clear to auscultation bilaterally Cardio Jugular venous distension: no JVD Rate: regular rate GI Palpation (GI): Soft to palpation Auscultation: normal bowel sounds General: Yes no CVA tenderness Back/Spine/Pelvis Back: no CVA tenderness Skin General skin exam: no rashes or lesions noted Neuro General: patient oriented x3 and moves all extremities Extrem General: Yes no pedal edema Results Reviewed Nephrology Results: Sodium 139 mmol/L (135-145) 04/04/23 Potassium 4.1 mmol/L (3.3-5.1) 04/04/23 Chloride 100 mmol/L (96-108) 04/04/23 Carbon Dioxide 29 mmol/L (22-29) 04/04/23 BUN 8 mg/dL (9-16) L 04/04/23 Creatinine 0.77 mg/dL (0.5-1.4) 04/04/23 Calcium 9.7 mg/dL (8.4-10.2) 04/04/23 Urine Creatinine 59.21 mg/dL 04/04/23 Protein/Creatinin Ratio TNP 04/04/23 Assessment & Plan Assessment & Plan (1) Microalbuminuria: Code(s): R80.9 - Proteinuria, unspecified Category: Medical (2) Essential hypertension: Code(s): I10 - Essential (primary) hypertension Category: Medical (3) Vaginal thrush: Code(s): B37.31 - Acute candidiasis of vulva and vagina Category: Medical Plan Ms. Lynch has history of microalbuminuria. She has obesity. Her blood sugars are getting better controlled. She is tolerating Farxiga. She needs to lose weight. She has vaginal thrush for which I prescribed PO fluconazole. She is at risk for secondary FSGS. She is tolerating current dose of ARB & Farxiga. She needs close follow up with her consumer safety officer. She should avoid nonsteroidal anti-inflammatory medications and remain well hydrated. I did not make any changes today. All her questions were answered. Follow-up given Medications: New fluconazole 150 mg PO Q3D 2 tabs 0RF Coding Level of Care Code Est Pt Level 4 (24035) Diagnoses Microalbuminuria R80.9 Essential hypertension I10 Vaginal thrush B37.31
[2023-11-25 14:07] VITALS: BP 130/60; PULSE 101; O2SAT 95; BMI 47.6
== END 2023-11-25 14:36 | disposition home or self-care (01) ==
PROVIDERS: PCP Internal Medicine; Visit Provider Internal Medicine Nephrology
DX: R80.9 Proteinuria, unspecified (principal); I10 Essential (primary) hypertension; B37.31 Acute candidiasis of vulva and vagina
CPT/HCPCS: 99214

== ENCOUNTER → 2023-11-25 13:50 | Outpatient (BNVA) | payer OTHER, SELFPAY | PROVIDERS: PCP Internal Medicine; Visit Provider Internal Medicine Nephrology ==

== ENCOUNTER 2024-01-12 15:20 | Outpatient (AMB) | payer OTHER, SELFPAY ==
[2024-01-12 15:33] VITALS: BP 138/74; BMI 48.3
--- NOTE | 2024-01-12 15:33 | A.OFFPC_ITS ---
Vital Signs 01/12/24 15:33 Height 5 ft 2 in Weight 264 lb BMI 48.3 BP 138/74 Blood Pressure Location Lt brachial Position Sitting Intake Visit Reasons: PT/Physical Technical Analyst Required: No Accompanied by: Self / Same As Patient Allergies lisinopril [LISINOPRIL] Allergy (Intermediate, Verified 01/12/24 15:48) COUGH nystatin [From Nystop] Allergy (Intermediate, Verified 01/12/24 15:48) RASH, ITCHY ( FROM TOPICAL POWDER), rash shrimp Allergy (Intermediate, Verified 01/12/24 15:48) Anaphylaxis, swollen dulaglutide [From Trulicity] Adverse Reaction (Intermediate, Verified 01/12/24 15:48) Nausea and Vomiting insulin detemir [From Levemir U-100 Insulin] Adverse Reaction (Intermediate, Verified 01/12/24 15:48) Abdominal Pain insulin glargine [From Toujeo SoloStar U-300 Insulin] Adverse Reaction (Intermediate, Verified 01/12/24 15:48) Abdominal Pain Medication List - Last Reconciled 01/12/[address]oyal MD albuterol sulfate 2.5 mg (3 mL) PO QID PRN albuterol sulfate 90 mcg/actuation 2 puffs inhalation Q6H PRN 30 days aspirin 81 mg PO DAILY 90 days atorvastatin 40 mg PO BEDTIME 90 days blood sugar diagnostic (BloxyTouch Ultra Test strips) test 4 times per day blood sugar diagnostic 1 strip miscellaneous BID buspirone 7.5 mg PO BID cetirizine (Allergy Relief (cetirizine)) 10 mg PO DAILY PRN 90 days Farxiga (dapagliflozin propanediol) 10 mg PO DAILY 90 days NS hydrochlorothiazide 25 mg PO DAILY 90 days insulin glargine (Basaglar KwikPen U-100 Insulin) 60 units (0.6 mL) subcut QPM 30 days insulin regular hum U-500 conc (Humulin R U-500 (Conc) Insulin Kwikpen) 125 units (0.25 mL) subcut BID 90 days metformin 1,000 mg PO BID 90 days montelukast 10 mg PO BEDTIME 90 days pen needle, diabetic (BD Ultra-Fine Short Pen Needle) Use 1 needle once a day pen needle, diabetic (BD Ultra-Fine Short Pen Needle) To use 4 times daily [pen needles 31 gauge x 8 mm As directed] semaglutide 0.25 mg (0.368 mL) subcut QWEEK 30 days sertraline 25 mg PO DAILY 90 days valsartan 320 mg PO DAILY 90 days Ventolin HFA 90 mcg/actuation (albuterol sulfate) 2 puffs inhalation Q6H PRN 30 days NS Tobacco use date assessed: 07/14/23 Fall risk assessment: No Falls in past year Last assessed Fall Risk: 01/12/24 Dental Screening Dental Screen Date: 07/14/23 HPI HPI Comments History of Present Illness Details This is a 68-year-old female with diabetes mellitus type 2 on long-term current use of insulin, hypertension, anxiety and morbid obesity that comes today for follow-up on her conditions. A1c elevated and I will change short- acting insulin from twice a day to 3 times a day. Blood pressure stable. Anxiety well controlled with SSRIs. She is morbidly obese with a BMI of 48.3 and declines weight loss surgery. Was advised to do diet and exercise to reach BMI goal less than 30. [facility] Medical History (Updated 01/12/24 @ 16:[address] Goyal MD) Venous (peripheral) insufficiency Obesity due to excess calories DM2 (diabetes mellitus, type 2) Moderate asthma Hypovitaminosis D Pure hypercholesterolemia Essential hypertension Diabetes mellitus Surgical History History of hysterectomy History of cataract surgery History of vocal cord polypectomy History of section Family History Father No problems noted. Mother Colon cancer Lung cancer CVD (cardiovascular disease) Diabetes Hypertension Brother Stroke Brother Melanoma Maternal Uncle Cancer Social History Household Members: Spouse Housing: House Alcohol intake: never Patient Tobacco Use Status: Never used Tobacco e-Cigarette/Vaping Use: Never Used Second Hand Smoke Exposure: No service: No Current occupational status: unemployed Cognitive needs: Yes Hearing needs: No Vision needs: No Female Reproductive History Menstrual Age of Menarche: 14 Questionnaire Thrive Questionnaire Date Thrive assessed: 07/14/23 SHAD-7 AMB Questionnaire SHAD-7 Date SHAD - 7 assessed: 07/14/23 Source: Developed by Drs. Marco Paul, Nadiya Wallace, Manav Sun and colleagues, with an educational kimberly from [employer]. Review of Systems Const All systems reviewed & are unremarkable except as noted in HPI and below Card Denies chest pain at rest, Denies chest pain with activity, Denies edema, Denies irregular heart rhythm, Denies claudication, Denies dyspnea, Denies dyspnea on exertion, Denies orthopnea, Denies paroxysmal nocturnal dyspnea and Denies slow heart rate Resp Denies cough, Denies dyspnea and Denies dyspnea on exertion GI Denies abdominal pain, Denies change in bowel habits, Denies excessive flatus, Denies nausea and Denies vomiting Denies urinary incontinence, Denies urinary hesitancy and Denies urinary urgency Musc Denies atrophy, Denies deformity and Denies limited range of motion Physical exam (Primary Care) Vital Signs: Last Vital Signs BP 138/74 01/12/24 15:33 BMI result Body Mass Index 48.3 Tobacco/Smoking Status: Tobacco use Status Tobacco use date assessed 07/14/23 01/12/24 15:38 Patient Tobacco Use Status Never used Tobacco 01/12/24 15:38 e-Cigarette/Vaping Use Never Used 01/12/24 15:38 Thrive Assessment: Date of Thrive Assessment Date Thrive assessed 07/14/23 01/12/24 15:38 Resp Effort & Inspection: normal respiratory effort Auscultation: clear to auscultation bilaterally Cardio Jugular venous distension: no JVD Rate: regular rate Rhythm: regular rhythm Heart sounds: S1 normal heart sound present and S2 normal heart sound present Extrem General: Yes full ROM Results AMB Hemoglobin A1c AMB Hemoglobin A1c 10.1 % Last Edit by KHALIDA Kee on 01/12/24 15: 45 Results Reviewed Results Reviewed: Laboratory Last Values Hgb A1c (Clinic) 10.1 % (4.0-6.0) H 01/12/24 15:32 Assessment and Plan Assessment & Plan (1) Morbidly obese: Code(s): E66.01 - Morbid (severe) obesity due to excess calories Plan: Start diet and exercise. BMI goal is less than 30. (2) Diabetes mellitus: Code(s): E11.9 - Type 2 diabetes mellitus without complications Qualifiers: Diabetes mellitus type: type 2 Diabetes mellitus joint terminal attack controller insulin use: with joint terminal attack controller use Diabetes mellitus complication status: with hyperglycemia Qualified Code(s): E11.65 - Type 2 diabetes mellitus with hyperglycemia; Z79.4 - termination clerk (current) use of insulin Plan: Continue long-acting insulin. Continue Farxiga. Increase Ozempic. Change short-acting insulin to 3 times a day. A1c goal is equal or less than 7%. (3) Essential hypertension: Code(s): I10 - Essential (primary) hypertension Plan: Continue valsartan. Blood pressure goal is equal or less than 130/80. (4) SHAD (generalized anxiety disorder): Code(s): F41.1 - Generalized anxiety disorder Plan: Continue SSRIs. Orders: Orders Lipid Panel Today E78.5 - Hyperlipidemia, unspecified Comprehensive [place]. Panel Fast Today E11.65 - Type 2 diabetes mellitus with hyperglycemia, Z79.4 - MCFP (current) use of insulin AMB Hemoglobin A1c Today E11.65 - Type 2 diabetes mellitus with hyperglycemia, Z79.4 - termination clerk (current) use of insulin Microalbumin, Random (w Creat) Today E11.9 - Type 2 diabetes mellitus without complications Medications: New semaglutide (Ozempic) 0.5 mg (0.736 mL) subcut QWEEK 2.944 mL 0RF 4 weeks fluconazole 150 mg PO DAILY 14 tabs 1RF 14 days Changed From albuterol sulfate 90 mcg/actuation (ProAir HFA) 2 puffs inhalation Q6H 30 days PRN 6.7 grams 3RF shortness of breath or wheezing To albuterol sulfate 90 mcg/actuation 2 puffs inhalation Q6H PRN 6.7 grams 3RF shortness of breath or wheezing 30 days From insulin regular hum U-500 conc (Humulin R U-500 (Conc) Insulin Kwikpen) 125 units (0.25 mL) subcut BID 90 days 45 mL 3RF E11.65 - Type 2 diabetes mellitus with hyperglycemia, Z79.4 - termination clerk (current) use of insulin To insulin regular hum U-500 conc (Humulin R U-500 (Conc) Insulin Kwikpen) 80 units (0.16 mL) subcut .three times a day 6 mL 3RF 90 days E11.65 - Type 2 diabetes mellitus with hyperglycemia, Z79.4 - MCFP (current) use of insulin Refilled metformin 1,000 mg PO BID 180 tabs 1RF 90 days E11.65 - Type 2 diabetes mellitus with hyperglycemia, Z79.4 - MCFP (current) use of insulin montelukast 10 mg PO BEDTIME 90 tabs 0RF 90 days hydrochlorothiazide 25 mg PO DAILY 90 tabs 1RF 90 days buspirone 7.5 mg PO BID 180 tabs 1RF sertraline 25 mg PO DAILY 90 tabs 1RF 90 days atorvastatin 40 mg PO BEDTIME 90 tabs 3RF 90 days insulin glargine (Basaglar KwikPen U-100 Insulin) 60 units (0.6 mL) subcut QPM 18 mL 6RF 30 days E11.65 - Type 2 diabetes mellitus with hyperglycemia, Z79.4 - termination clerk (current) use of insulin valsartan 320 mg PO DAILY 90 tabs 1RF 90 days Coding Level of Care Code Est Pt Level 4 (61962) Complex EM visit Add On G2211 Diagnoses Morbidly obese E66.01 Type 2 diabetes mellitus with hyperglycemia, with long-term current use of insulin E11.65; Z79.4 Diabetes mellitus type: type 2 Diabetes mellitus joint terminal attack controller insulin use: with joint terminal attack controller use Diabetes mellitus complication status: with hyperglycemia Essential hypertension I10 SHAD (generalized anxiety disorder) F41.1 Time Spent (min) 22
== END 2024-01-12 16:05 | disposition home or self-care (01) ==
PROVIDERS: PCP Internal Medicine; Visit Provider Internal Medicine
DX: E11.65 Type 2 diabetes mellitus with hyperglycemia (principal); E66.01 Morbid (severe) obesity due to excess calories; Z79.4 Long term (current) use of insulin; Z68.42 Body mass index [BMI] 45.0-49.9, adult; I10 Essential (primary) hypertension; F41.1 Generalized anxiety disorder
CPT/HCPCS: 83036; 99214

== ENCOUNTER 2024-08-05 15:31 | Outpatient (AMB) | payer OTHER, SELFPAY ==
--- NOTE | 2024-08-05 15:34 | HO.NEPHOV ---
Vital Signs 08/05/24 15:36 Height 5 ft 2 in Weight 269 lb 8 oz BMI 49.3 BP 110/60 Blood Pressure Location Rt brachial Position Sitting Pulse 100 Pulse Source Pulse Oximeter Pulse Oximetry (%) 93 Oxygen Delivery Method Room Air Intake Visit Reasons: Essential hypertension-LVM Supervisor Telephone Clerks Required: No Accompanied by: Self / Same As Patient Allergies lisinopril [LISINOPRIL] Allergy (Intermediate, Verified 08/05/24 15:36) COUGH nystatin [From Nystop] Allergy (Intermediate, Verified 08/05/24 15:36) RASH, ITCHY ( FROM TOPICAL POWDER), rash shrimp Allergy (Intermediate, Verified 08/05/24 15:36) Anaphylaxis, swollen dulaglutide [From Trulicity] Adverse Reaction (Intermediate, Verified 08/05/24 15:36) Nausea and Vomiting insulin detemir [From Levemir U-100 Insulin] Adverse Reaction (Intermediate, Verified 08/05/24 15:36) Abdominal Pain insulin glargine [From Toujeo SoloStar U-300 Insulin] Adverse Reaction (Intermediate, Verified 08/05/24 15:36) Abdominal Pain HPI Comments Details: Claudette has longstanding diabetes. She is on Ozempic. She is on Farxiga. She has lost a lot of weight on Ozempic but has stopped due to eye symptoms. She has history of microalbuminuria. She was seen for follow-up. She has been having recurrent vaginal candidiasis due to DM and Farxiga. She does not have any urinary symptoms, fever, chest pain, shortness of breath, nausea, vomiting, diarrhea or pedal edema. Her A1c has improved. She is trying to lose weight and is closely followed by her PCP and test engine evaluator. She is on angiotensin receptor jose luis. Her blood pressure has been at goal. [facility], [facility] Medical History (Updated 01/12/24 @ 16:[address] Goyal MD) Venous (peripheral) insufficiency Obesity due to excess calories DM2 (diabetes mellitus, type 2) Moderate asthma Hypovitaminosis D Pure hypercholesterolemia Essential hypertension Diabetes mellitus Surgical History History of hysterectomy History of cataract surgery History of vocal cord polypectomy History of section Family History Father No problems noted. Mother Colon cancer Lung cancer CVD (cardiovascular disease) Diabetes Hypertension Brother Stroke Brother Melanoma Maternal Uncle Cancer Social History Household Members: Spouse Housing: House Alcohol intake: never Patient Tobacco Use Status: Never used Tobacco e-Cigarette/Vaping Use: Never Used Second Hand Smoke Exposure: No service: No Current occupational status: unemployed Cognitive needs: Yes Hearing needs: No Vision needs: No Female Reproductive History Menstrual Age of Menarche: 14 Review of Systems Const All systems reviewed & are unremarkable except as noted in HPI and below Physical Exam Vital Signs: Last Vital Signs Pulse 100 08/05/24 15:36 BP 110/60 08/05/24 15:36 Pulse Ox 93 08/05/24 15:36 Oxygen Delivery Method Room Air 08/05/24 15:36 BMI result Body Mass Index 49.3 Const General: comfortable and no acute distress Orientation/consciousness: patient oriented x3 HEENT Head: Yes normocephalic Mouth: Normal oral and palatal mucosa present Eyes EOM: EOMs intact bilaterally Neck Neck: Yes supple Resp Auscultation: clear to auscultation bilaterally Cardio Jugular venous distension: no JVD Rate: regular rate GI Palpation (GI): Soft to palpation Auscultation: normal bowel sounds Skin General skin exam: no rashes or lesions noted Neuro General: patient oriented x3 and moves all extremities Extrem General: Yes no pedal edema Assessment & Plan Assessment & Plan (1) Microalbuminuria: Code(s): R80.9 - Proteinuria, unspecified Category: Medical (2) Essential hypertension: Code(s): I10 - Essential (primary) hypertension Category: Medical Plan Ms. Lynch has history of microalbuminuria. She has obesity. Her blood sugars are getting better controlled. She is tolerating Farxiga. She needs to lose weight. She is at risk for secondary FSGS. She is tolerating current dose of ARB & Farxiga. She needs close follow up with her test engine evaluator. She should avoid nonsteroidal anti-inflammatory medications and remain well hydrated. I did not make any changes today. All her questions were answered. Follow-up given Orders: Orders Protein Creatinine Ratio, Ur Today I10 - Essential (primary) hypertension, R80.9 - Proteinuria, unspecified Coding Level of Care Code Est Pt Level 4 (19438) Diagnoses Microalbuminuria R80.9 Essential hypertension I10
[2024-08-05 15:36] VITALS: BP 110/60; PULSE 100; O2SAT 93; BMI 49.3
--- OUTSIDE RECORDS SUMMARY | 2024-08-05 18:58 | XMS_ITS | Clinical Summary ---
Author Organization [facility] it Address [address] [place] [address] Care Team Providers Care Senior Managing Director Name Role Phone Ave Goyal MD Primary Care Provider [phone] Surgical History Surgery Date Site/Laterality Comments SECTION PROCEDURE: HISTORICAL DELIVERY; COMMENT: X2 OTHER SURGICAL HISTORY PROCEDURE: HISTORICAL EAR SURGERY; COMMENT: tubes, removed bones too OTHER SURGICAL HISTORY 2.5. PROCEDURE: OUTSIDE MAMMO COLONOSCOPY 01/09 PROCEDURE: HISTORICAL COLONOSCOPY; COMMENT: repeat 10 years Medical History Medical History Date Comments Lymphedema DX:Lymphedema HTN (hypertension) DX:HTN (hyper tension) Hyperlipidemia DX:Hyperlipidemi a Asthma DX:Asthma Anxiety DX:Anxiety Major depression 10/08/2013 DX:Major depres susan History of DVT (deep vein thrombosis) DX:History of DVT (deep vein thrombosis); COMMENT: in both legs, in , was on coumadin Microalbuminuria 03/02/2014 DX:Microalbumin uria PTSD (post-traumatic stress disorder) 03/02/2014 DX:PTSD (post-traumatic stress disorder) Fatty liver 03/02/2014 DX:Fatty liver Family history of colorectal cancer 03/03/2014 DX:Family history of colorectal cancer Morbid obesity with BMI of 5 0.0-59.9, adult (CMS/HCC) 07/29/2017 DX:Morbid obesity with BMI o f 50.0-59.9, adult (HCC) DM (diabetes mellitus), type 2, uncontrolled, with renal complications DX:DM (diabetes mellitus), type 2, uncontrolled, with renal complications Family History Medical History Relation Name Comments Other: healthy Father Depression Father's side 1 Colon cancer Mother diagnosed in he r 70s Diabetes Mother asthma, Hypertension Mother Breast cancer Neg Hx Ovarian cancer Neg Hx Relation Name Status Comments Father Father's side 1 Father's side 2 Mother Social History Tobacco Use Types Packs/Day Years Used Date Smoking Tobacco: Never Smokeless Tobacco: Never Alcohol Use Standard Drinks/Week Comments No 0 (1 standard drink = 0.6 oz pur e alcohol) Comments Unknown Sex and Gender Information Value Date Recorded Sex Assigned at Not on file Legal Sex Female 6:17 PM EST Gender Identity Not on file Sexual Orientation Not on file Obstetrics History Plan of Treatment Health Maintenance Due Date Last Done Comments Breast Cancer Screening 1955 Diabetes: Annual GFR (Glomerular Filtration Rate) 1957 Diabetes: Annual Foot Exam 11/14/1967 Diabetes: Annual Retina Eye Exam 11/14/1967 DTaP,Tdap,and Td Vaccines (1 - Tdap) 1976 Hepatitis A Vaccines (1 of 2 - Risk 2-dose series) 1976 Zoster Vaccines (1 of 2) 11/14/2007 Pneumococcal Vaccine: 50+ Years (2 of 2 - PCV) 02/21/2011 02/21/2010, 02/21/2005 Hepatitis B Vaccines (1 of 3 - Risk 3-dose series) 2017 RSV Immunization Patients 60 + Years Old (1 - Risk 60-74 years 1-dose series) 2017 Cholesterol Screening (Lipid Panel) 05/04/2022 Colorectal Cancer Screening: Colonoscopy 05/04/2022 Depression Screening 05/04/2022 Hepatitis C Screening 05/04/2022 Osteoporosis Screening (Bone Density Screening) 05/04/2022 Social Influencers of Health Screening 05/04/2022 Diabetes: Annual Urine Albumin-Creatinine Ratio (uACR) 05/18/2022 Diabetes: Blood Sugar Contro l Test (HGBA1C) 05/18/2022 Hypertension/CHF/CAD Annual BMP Blood Test 05/18/2022 Falls Risk Assessment 2022 COVID-19 Vaccine (2023-2 5 season) 2024 Influenza Vaccine (#1) 2024 4, 04/01/2013 HIB Vaccines Aged Out No longer eligi ble based on patient's age to complete this topic HPV Vaccines Aged Out No longer eligi ble based on patient's age to complete this topic IPV Vaccines Aged Out No longer eligi ble based on patient's age to complete this topic MMR Vaccines Aged Out No longer eligi ble based on patient's age to complete this topic Meningococcal ACWY Vaccine Aged Out N o longer eligible based on patient's age to complete this topic Meningococcal B Vacine Aged Out No lo nger eligible based on patient's age to complete this topic RSV Immunization Patients Under 20 months Aged Out No longer eligible b ased on patient's age to complete this topic Varicella Vaccines Aged Out No longer eligible based on patient's age to complete this topic Care Teams Senior Managing Director Relationship Specialty Start Date End Date Ave Goyal MD [address] [place] [address] , [address] [facility] NIKKO Reyes PCP - General Internal Medicine 12/06/14
--- OUTSIDE RECORDS SUMMARY | 2024-08-05 18:58 | XMS_ITS | Clinical Summary ---
Author Organization [facility] Address [address] [facility] [address] [place] [address] Phone Care Team Providers Care Cabinet Maker Name Role Phone Ave Minor MD Primary Care Provider [phone] Allergies Active Allergy Reactions Criticality Noted Date Comments Amlodipine 05/07/2022 Other reaction(s): swelling Lisinopril 05/07/2022 Medications albuterol HFA (PROVENTIL HFA;VENTOLIN HFA) 108 (90 Base) MCG/ACT inhaler Inhale 2 puffs 4 (four) times a day Active aspirin (ST NEPTALI) 81 MG EC tablet Take 81 mg by mouth 1 (one) time each day Active atorvastatin (LIPITOR) 40 MG tablet Take 40 mg by mouth 1 (one) time each day Active busPIRone (BUSPAR) 7.5 MG tablet Take 7.5 mg by mouth in the morning and 7.5 mg in the evening. Active hydroCHLOROthiaz cary 25 MG tablet Take 25 mg by mouth 1 (one) time each day Active metFORMIN (GLUCOPHAGE) 1000 MG tablet Take 850 mg by mouth in the morning and 850 mg in the evening. Take with meals. Active sertraline (ZOLOFT) 25 MG tablet Take 25 mg by mouth 1 (one) time each day Active SITagliptin (JANUVIA) 100 MG tablet Take 100 mg by mouth 1 (one) time each day Active valsartan (DIOVAN) 320 MG tablet Take 320 mg by mouth 1 (one) time each day Active montelukast (SINGULAIR) 10 MG tablet Take 10 mg by mouth every night Active insulin glargine (LANTUS) 100 UNIT/ML injection Inject 55 Units under the skin every night Active insulin regular (HumuLIN R) 500 UNIT/ML patient supplied pump Inject 150 mL under the skin in the morning and 150 mL in the evening. Active Dapagliflozin Propanediol (Farxiga) 5 MG tablet Take 5 mg by mouth 1 (one) time each day in the morning 30 tablet 3 01/21/2023 Active Active Problems Problem Noted Date Diagnosed Date Chronic kidney disease stage 3 05/07/2022 Hypertensive disorder 05/07/2022 Proteinuria 05/07/2022 Resolved Problems Problem Noted Date Diagnosed Date Resolved Date Acidosis 05/07/2022 05/07/2022 Hyperlipidemia 05/07/2022 05/07/2022 Obesity 05/07/2022 05/07/2022 Pain in limb 05/07/2022 05/07/2022 Type 2 diabetes mellitus 05/07/202210/2021 Vascular insufficiency 05/07/202205/07 Venous hypertension 05/07/2022 05/07/20 Leg swelling symptom 05/07/2022 022 Family History Medical History Relation Comments Cancer Brother Stroke Brother Cancer Mother Lung and Colon c ancer Diabetes Mother Heart disease Mother Hypertension Mother Cancer Mother's Brother Relation Status Comments Brother Mother Mother's Brother Social History Tobacco Use Types Packs/Day Years Used Date Smoking Tobacco: Never Smokeless Tobacco: Never Alcohol Use Standard Drinks/Week Comments Never 0 (1 standard drink = 0.6 oz pur e alcohol) Comments Unknown Sex and Gender Information Value Date Recorded Sex Assigned at Not on file Legal Sex Female 4:48 PM EST Gender Identity Not on file Sexual Orientation Not on file Last Filed Vital Signs Vital Sign Reading Time Taken Comments Blood Pressure 156/70 01/21/2023 4:12 PM EDT Pulse 107 01/21/2023 4:12 PM EDT Temperature - - Respiratory Rate - - Oxygen Saturation - - Inhaled Oxygen Concentration - - Weight 133 kg (293 lb 6.4 oz) 01/21/2023 4:12 PM EDT Height 157.5 cm (5' 2 ) 01/21/2023 4:12 PM EDT Body Mass Index 53.66 01/21/2023 4:12 PM EDT Plan of Treatment Health Maintenance Due Date Last Done Comments Breast Cancer Screening 1955 Pneumococcal Vaccine: 65+ Ye ars (1 of 2 - PCV) 11/14/1963 Colorectal Cancer Screening: Annual FOBT 2006 Colorectal Cancer Screening: Colonoscopy 2006 Colorectal Cancer Screening: Sigmoidoscopy 2006 Diabetes: Hemoglobin A1C 01/21/2023 Diabetes: Ophthalmology Exam 01/21/2023 Diabetes: Pedal Pulse Checked 01/21/2023 Diabetes: Sensory Foot Exam 01/21/2023 Diabetes: Visual Foot Exam 01/21/2023 Influenza Vaccine (#1) 2024 Hepatitis B Vaccine Aged Out No longe r eligible based on patient's age to complete this topic Insurance [facility] Care Teams Cabinet Maker Relationship Specialty Start Date End Date Ave Minor MD [address] [place], [place] PCP - General Internal Medicine 02/25/22
== END 2024-08-05 16:03 | disposition home or self-care (01) ==
PROVIDERS: PCP Internal Medicine; Visit Provider Internal Medicine Nephrology
DX: R80.9 Proteinuria, unspecified (principal); I10 Essential (primary) hypertension
CPT/HCPCS: 99214

== ENCOUNTER 2024-12-14 11:22 | Outpatient (REF) | payer OTHER, SELFPAY ==
[2024-12-14 12:25] LABS: Hemoglobin A1C 395.0557 umol/L; Total Hemoglobin (HGBA1C) 3680.8618 umol/L
[2024-12-14 12:33] LABS: Alanine Aminotransferase 23 U/L (0-31); Albumin Level 4.0 g/dL (3.5-5.0); Alkaline Phosphatase 107 U/L (39-117); Anion Gap 15 (12-20); Aspartate Amino Transferase 28 U/L (5-31); Blood Urea Nitrogen 10 mg/dL (9-16); Calcium 9.0 mg/dL (8.4-10.2); Carbon Dioxide 27 mmol/L (22-29); Chloride 102 mmol/L (96-108); Cholesterol 159 mg/dL (<200); Estimated Glomerular Filt Rate > 60; HDL Cholesterol 53 mg/dL (>40); Potassium 3.9 mmol/L (3.3-5.1); Sodium 140 mmol/L (135-145); Total Protein 6.8 g/dL (6.5-8.0); Triglycerides 121 mg/dL (<150)
--- OUTSIDE RECORDS SUMMARY | 2024-12-14 12:46 | XMS_ITS | Clinical Summary ---
Author Organization [facility] Address [address] [place] [address] Care Team Providers Care Stage Hand Name Role Phone Dalila Anders DMD Primary Care Provider [phone] Source Comments PLEASE NOTE, if this patient is a minor, it may be UNLAWFUL to discuss sensitive information that is contained in these records (such as FAMILY PLANNING, MENTAL HEALTH or SUBSTANCE ABUSE) with the minor patient's parent or other person without the patient's specific authorization.[facility] Medications acetaminophen (TYLENOL) 500 mg capsuleIndicatio ns:Toothache Take 1 Cap by mouth every 6 (six) hours as needed for pain 60 Cap 01/03/2020 Active Immunizations Immunization Administration Dates Next Due Moderna COVID-19 Vaccine, re d cap blue label, 12+ Primary Series 10/09/2020,09/09/2020 Social History Tobacco Use Types Packs/Day Years Used Date Smoking Tobacco: Never Assessed Social Connections Answer Date Recorded Social Connections and Isolation 0 11/05/2023 Financial Resource Strain Answer Date R ecorded Financial Resource Strain 0 2023 Stress Answer Date Recorded Stress 0 11/05/2023 Physical Activity Answer Date Recorded Physical Activity 0 11/05/2023 Food Insecurity Answer Date Recorded Food 0 11/05/2023 Transportation Needs Answer Date Record ed Transportation 0 11/05/2023 Housing Stability Answer Date Recorded Housing 0 11/05/2023 Safety and Environment Answer Date Luke rded Safety 0 11/05/2023 Utilities Answer Date Recorded Utilities 0 11/05/2023 Employment Answer Date Recorded Employment 0 11/05/2023 Comments Unknown Sex and Gender Information Value Date Recorded Sex Assigned at Not on file Legal Sex Female 9:01 AM PDT Gender Identity Not on file Sexual Orientation Not on file Plan of Treatment Health Maintenance Due Date Last Done Comments Diabetes Screening 1955 Hepatitis C Screening 1957 Lipid Screening 1957 Tobacco Screening 1957 Hypertension Screening (#1) 11/14/1975 Breast Cancer Screening (Mammogram) 1997 CT Colonography 2002 Colonoscopy 2002 Colorectal Cancer Screening 2002 FIT/gFOBT 2002 Fecal DNA 2002 Flexible Sigmoidoscopy 2002 Imm-Zoster, Recombinant (1 of 2) 11/14/2007 Imm-Pneumococcal 50+ (2 of 2 - PCV) 02/21/2011 02/21/2010, 02/21/2005 Bone Density Screening 2022 Falls Prevention 2022 Bpu-[id number]-51 ( season) 2024 021, 09/09/2020 Alcohol and Drug Screen 06/02/2024 Depression Annual Screen 06/02/2024 Imm-Influenza (#1) 2025 05/12/2019, 1 , 05/22/2017, Additional history exists Imm-DTaP/Tdap/Td (2 - Td or Tdap) 05/12/2029 05/12/2019, 06/30/2009, 02/21/2005 Insurance [facility] [employer] [place] [id number] Care Teams Stage Hand Relationship Specialty Start Date End Date Dalila Anders DMD [address] [place] [address] [facility] - General 08/11/20
--- OUTSIDE RECORDS SUMMARY | 2024-12-14 12:46 | XMS_ITS | Clinical Summary ---
Author Organization [facility] Address [address] [place] [address] Care Team Providers Care Security Associate Name Role Phone Ave Goyal MD Primary Care Provider [phone] Surgical History Surgery Date Site/Laterality Comments SECTION [...] obesity with BMI of 5 0.0-59.9, adult (CMS/HCC V24, CMS/HCC V28) 07/29/2017 DX:Morbid obesity wit h BMI of 50.0-59.9, adult (HCC) DM (diabetes mellitus), type [...] - Risk 3-dose series) 2017 RSV Immunization Adult Patients (1 - Risk 60-74 years 1-dose series) [...] (2023-2 5 season) 2024 Influenza Vaccine (#1) 2025 4, 04/01/2013 HIB Vaccines Aged Out No [...] age to complete this topic Meningococcal B Vaccine Aged Out No l onger eligible based on patient's age to complete this topic RSV Immunization Patients Under 20 months Aged Out No longer eligible b ased on patient's age to complete this topic Varicella Vaccines Aged Out No longer eligible based on patient's age to complete this topic Care Teams Security Associate Relationship Specialty Start Date End Date Ave Goyal MD [address] [place] [address] , [address] [facility] Physician Associ D/B/A: [facility] NIKKO Reyes PCP - General Internal Medicine 12/06/14
--- OUTSIDE RECORDS SUMMARY | 2024-12-14 12:46 | XMS_ITS | Clinical Summary ---
Author Organization [facility] Address [address] [facility] [address] [place] [address] Phone Care Team Providers Care Cutter Operator Name Role Phone Ave Minor MD Primary Care Provider [phone] Allergies Active Allergy Reactions Criticality Noted Date [...] Comments Breast Cancer Screening 1957 Pneumococcal Vaccine: 50+ Ye ars (1 of 2 - PCV) 1976 Colorectal Cancer Screening: Annual FOBT 2006 Colorectal Cancer Screening: Colonoscopy 2006 Colorectal Cancer Screening: Sigmoidoscopy 2006 Diabetes: Hemoglobin A1C 01/21/2023 Diabetes: Ophthalmology Exam 01/21/2023 Diabetes: Pedal Pulse Checked 01/21/2023 Diabetes: Sensory Foot Exam 01/21/2023 Diabetes: Visual Foot Exam 01/21/2023 Influenza Vaccine (#1) 2025 Hepatitis B Vaccine Aged Out No longe r eligible based on patient's age to complete this topic Insurance [facility] Care Teams Cutter Operator Relationship Specialty Start Date End Date Ave Minor MD [address] [place], [place] PCP - General Internal Medicine 02/25/22
[2024-12-14 13:02] LABS: Microalbum/Creatinine Ratio Ur 40.7 ug/mg cr (<30)
== END 2024-12-14 11:23 | disposition home or self-care (01) ==
LOC: HO.LAB 11:22
PROVIDERS: PCP Internal Medicine; Visit Provider Internal Medicine
DX: E11.65 Type 2 diabetes mellitus with hyperglycemia (principal); E78.5 Hyperlipidemia, unspecified; E11.9 Type 2 diabetes mellitus without complications; Z79.4 Long term (current) use of insulin
CPT/HCPCS: 36415; 80053; 80061; 82043; 82570; 83036

== ENCOUNTER 2025-02-19 11:08 | Outpatient (REF) | payer MEDICARE, MEDICAID, SELFPAY ==
--- NOTE | ~2025-02-19 | XR_ITS ---
CLINICAL HISTORY: R05.9 - Cough, unspecified Chest Radiographs, 2 views Comparison: None available Findings: No cardiomegaly. Normal mediastinal contours. No pneumothorax. No opacity. No pleural effusion. Normal upper abdomen. No acute fracture. Impression: No acute findings. This document has been electronically signed by: Mckenzie Mcclure MD on 02/19/2025 14:58:58
[2025-02-19 15:49] LABS: Resp Syncy Virus RNA Qual PCR NEGATIVE (Negative); SARS COV2 PCR INHOUSE POSITIVE (Negative)
== END 2025-02-19 11:09 | disposition home or self-care (01) ==
LOC: HO.HMGCX 11:08
PROVIDERS: PCP Internal Medicine; Visit Provider Physician Assistant Medical
DX: B34.9 Viral infection, unspecified (principal); R05.3 Chronic cough; J45.909 Unspecified asthma, uncomplicated; E11.9 Type 2 diabetes mellitus without complications; I10 Essential (primary) hypertension; E66.9 Obesity, unspecified; Z20.822 Contact with and (suspected) exposure to COVID-19
CPT/HCPCS: 71046; 87637; 99212

== ENCOUNTER 2025-02-19 11:08 | Outpatient (AMB) | payer MEDICARE, MEDICAID, SELFPAY ==
--- OUTSIDE RECORDS SUMMARY | 2025-02-19 11:11 | XMS_ITS | Clinical Summary ---
Author Organization [facility] Address [address] [place] [id number] Phone Care Team Providers Care Telephone Operator Name Role Phone Ave Minor MD Primary Care Provid er Social History Tobacco Use Types Packs/Day Years Used Date Smoking Tobacco: Never Assessed Education Answer Date Recorded Are you interested in more education? Not on fernanda e 04/16/2023 Are you concerned about learning? Not on file 04/16/2023 No 04/16/2023 No 04/16/2023 Digital Access Answer Date Recorded No 04/16/2023 No 04/16/2023 Reliable internet access at home? Not on file 04/16/2023 Device with a working camera? Not on file Comments Unknown Sex and Gender Information Value Date Recorded Sex Assigned at Not on file Legal Sex Female 3:09 PM EDT Gender Identity Not on file Sexual Orientation Not on file Plan of Treatment Health Maintenance Due Date Last Done Comments Adult Td,Tdap Booster 1955 LIPID PANEL 1957 DEPRESSION SCREENING 1969 SMOKING Hx and SMOKELESS TOB ACCO SCREENING 1970 HEPATITIS C SCREENING 11/14/1975 MAMMOGRAM 1997 COLOGUARD 2002 COLONOSCOPY 2002 COLORECTAL CANCER SCREENING 2002 FIT TEST 2002 FOBT 2002 SIGMOIDOSCOPY 2002 VIRTUAL COLONOSCOPY 2002 PNEUMOCOCCAL VACCINES (50+ y ears) (1 of 1 - PCV) 11/14/2007 ZOSTER VACCINES (1 of 2) 11/14/2007 OSTEOPOROSIS SCREENING INITI AL (ONE-TIME) 2022 INFLUENZA VACCINE (#1) 2024 COVID-19 VACCINE ( - 2023-2 5 season) 2025 RSV VACCINE (1 - 1-dose 75+ series) 2032 HEPATITIS A VACCINES Aged Out No long er eligible based on patient's age to complete this topic HIB VACCINES Aged Out No longer eligi ble based on patient's age to complete this topic MENINGOCOCCAL VACCINES (ACWY) Aged Out No longer eligible based on patient's age to complete this topic MENINGOCOCCAL VACCINES (B) Aged Out N o longer eligible based on patient's age to complete this topic Medical Devices Not on file Insurance [employer] [address] [place] [address] [employer] Care Teams Telephone Operator Relationship Specialty Start Date End Date Ave Minor MD [address] [place] [address] PCP - General Internal Medicine 03/10/23 Additional Source Comments The information contained in this document represents components of the legal health record. It is not the complete legal health record.[facility]
--- OUTSIDE RECORDS SUMMARY | 2025-02-19 11:11 | XMS_ITS | Clinical Summary ---
Author Organization [facility] Address [address] [facility] [address] [place] [address] Phone Care Team Providers Care Director Compensation Name Role Phone Ave Minor MD Primary Care Provider [phone] Allergies Active Allergy Reactions Criticality Noted Date [...] patient's age to complete this topic Insurance [facility] Care Teams Director Compensation Relationship Specialty Start Date End Date Ave Minor MD [address] [place], [place] PCP - General Internal Medicine 02/25/22
--- OUTSIDE RECORDS SUMMARY | 2025-02-19 11:11 | XMS_ITS | Clinical Summary ---
Author Organization [facility] Address [address] [place] [address] Care Team Providers Care Stations Superintendent Name Role Phone Dalila Anders DMD Primary Care Provider [phone] Source Comments PLEASE NOTE, if this patient [...] needed for pain 60 Cap 01/03/2020 Active Active Problems No known active problems Encounters Date Type Department Care Team Description 12/21/2024 9:00 AM EDT Office Visit [facility] [address] [place] [phone] Brien Stahl DMD from Last 3 Months Immunizations Immunization Administration Dates Next Due Moderna [...] Sign Reading Time Taken Comments Blood Pressure 141/75 12/21/2024 9:27 AM EDT Pulse 99 12/21/2024 9:27 AM EDT Temperature - - Respiratory Rate - - Oxygen Saturation - - Inhaled Oxygen Concentration - - Weight - - Height - - Body Mass Index - - Plan of Treatment Upcoming Encounters Date Type Department Care Team (Late st Contact Info) Description 03/15/2025 1:40 PM EDT Office Visit [facility] [address] [place] [phone] [place]ia Phipps [address] [place] [address] Health Maintenance Due Date Last Done Comments Diabetes Screening 1957 Hepatitis C Screening 1957 Lipid Screening 1957 Tobacco Screening 1957 Breast Cancer Screening (Mammogram) 1997 CT Colonography 2002 Colonoscopy 2002 Colorectal Cancer Screening 2002 FIT/gFOBT 2002 Fecal DNA 2002 Flexible Sigmoidoscopy 2002 Imm-Zoster, Recombinant (1 of 2) 11/14/2007 Imm-Pneumococcal 50+ (2 of 2 - PCV) 02/21/2011 02/21/2010, 02/21/2005 Bone Density Screening 2022 Falls Prevention 2022 Alcohol and Drug Screen 06/02/2024 Depression Annual Screen 06/02/2024 Tox-[id number]-07 ( season) 2025 021, 09/09/2020 Imm-Influenza (#1) 2025 05/12/2019, 1 , 05/22/2017, Additional history exists Hypertension Screening (#1) 12/21/2025 Imm-DTaP/Tdap/Td (2 - Td or Tdap) 05/12/2029 05/12/2019, 06/30/2009, 02/21/2005 Procedures Procedure Name Priority Date/Time Associated Diagnosis Comments 12 INTRAORAL - PERIAPICAL EACH ADD RADIOGRAPH IMAGE Routine 12/21/2024 9:00 AM EDT Dental caries on smooth surface penetrating into pulp 12 LIMITED ORAL EVALUATION - PROBLEM FOCUSED Routine 12/21/2024 9:00 AM EDT Dental caries on smooth surface penetrating into pulp from Last 3 Months Insurance [employer] Care Teams Stations Superintendent Relationship Specialty Start Date End Date Dalila Anders DMD [address] [place] [address] PCP - General 08/11/20
--- OUTSIDE RECORDS SUMMARY | 2025-02-19 11:11 | XMS_ITS | Clinical Summary ---
Author Organization [facility] Address [address] [place] [address] Care Team Providers Care Open Hearth Helper Name Role Phone Ave Goyal MD Primary Care Provider [phone] Surgical History Surgery Date Site/Laterality Comments SECTION [...] Panel) 05/04/2022 Colorectal Cancer Screening: Colonoscopy 05/04/2022 Hepatitis C Screening 05/04/2022 Osteoporosis Screening (Bone Density Screening) 05/04/2022 Social Influencers of Health Screening 05/04/2022 Diabetes: Annual Urine Albumin-Creatinine Ratio (uACR) 05/18/2022 Diabetes: Blood Sugar Contro l Test (HGBA1C) 05/18/2022 Hypertension/CHF/CAD Annual BMP Blood Test 05/18/2022 Falls Risk Assessment 2022 Depression Screening 06/02/2024 COVID-19 Vaccine ( - 2023-2 5 season) 2025 Influenza Vaccine (#1) 2025 4, 04/01/2013 HIB [...] age to complete this topic Care Teams Open Hearth Helper Relationship Specialty Start Date End Date Ave Goyal MD [address] [place] [address] , [address] [facility] Physician Associ D/B/A: [facility] NIKKO Reyes PCP - General Internal Medicine 12/06/14
[2025-02-19 12:41] VITALS: BP 124/64; PULSE 96; RESP 17; TEMP 37.1; O2SAT 95; BMI 49.4
--- NOTE | 2025-02-19 12:41 | MHC.OFFWIV ---
Intake Vital Signs 02/19/25 12:41 Height 5 ft 2 in Weight 270 lb BMI 49.4 BP 124/64 Blood Pressure Location Rt brachial Position Sitting Respiration 17 Pulse 96 Pulse Source Pulse Oximeter Temp 98.7 F Temp Source Oral Pulse Oximetry (%) 95 Oxygen Delivery Method Room Air Intake Visit Reasons: EP-Flu symptoms-bronchitis Intake Note: Pt is here today c/o flu like symptoms/ bronchitis x7days: Coughing, SOB Patient Tobacco Use Status: Never used Tobacco Allergies lisinopril (LISINOPRIL) Allergy (Intermediate, Verified 02/19/25 12:53) COUGH nystatin (From Nystop) Allergy (Intermediate, Verified 02/19/25 12:53) RASH, ITCHY ( FROM TOPICAL POWDER), rash shrimp Allergy (Intermediate, Verified 02/19/25 12:53) Anaphylaxis, swollen dulaglutide (From Trulicity) Adverse Reaction (Intermediate, Verified 02/19/25 12:53) Nausea and Vomiting insulin detemir (From Levemir U-100 Insulin) Adverse Reaction (Intermediate, Verified 02/19/25 12:53) Abdominal Pain insulin glargine (From Toujeo SoloStar U-300 Insulin) Adverse Reaction (Intermediate, Verified 02/19/25 12:53) Abdominal Pain HPI EP-Flu symptoms-bronchitis HPI Details Patient is a 69-year-old female with history of diabetes, obesity, hypertension, and asthma who comes to the walk-in clinic about a week after developing upper respiratory infection symptoms. She reports that she had talked with her sister who is a nurse, and her sister thought she might have influenza, although it is early in the season for this. She did not get tested for flu or other viral pathogens yet. She reports that her chills, myalgias and sore throat have improved, however she now has a persistent cough, and is unable to cough up phlegm although she feels like she does have some chest congestion. No current shortness of breath, chest pain or pressure, headache or dizziness, weakness, myalgias or malaise, nausea vomiting or diarrhea, loss of sense of taste or smell, or other significant associated symptoms. No known sick contacts. She has not yet been vaccinated for flu and COVID this season. She reports that she gets diagnosed with bronchitis almost annually, and has it has always resolved with prednisone and azithromycin written for her in the past, and requests that this be refilled for her today. She denies underlying COPD history. She does have albuterol nebulizer at home, not currently being needed [facility] Medical History (Updated 01/12/24 @ 16:[address]oyal MD) Venous (peripheral) insufficiency Obesity due to excess calories DM2 (diabetes mellitus, type 2) Moderate asthma Hypovitaminosis D Pure hypercholesterolemia Essential hypertension Diabetes mellitus Surgical History History of hysterectomy History of cataract surgery History of vocal cord polypectomy History of section Family History Father No problems noted. Mother Colon cancer Lung cancer CVD (cardiovascular disease) Diabetes Hypertension Brother Stroke Brother Melanoma Maternal Uncle Cancer Social History Household Members: Spouse Housing: House Alcohol intake: never Patient Tobacco Use Status: Never used Tobacco e-Cigarette/Vaping Use: Never Used Second Hand Smoke Exposure: No service: No Current occupational status: unemployed Cognitive needs: Yes Hearing needs: No Vision needs: No Female Reproductive History Menstrual Age of Menarche: 14 Review of Systems Const All systems reviewed & are unremarkable except as noted in HPI and below Physical Exam Vital Signs: Last Vital Signs Temp 98.7 F 02/19/25 12:41 Pulse 96 02/19/25 12:41 Resp 17 02/19/25 12:41 BP 124/64 02/19/25 12:41 Pulse Ox 95 02/19/25 12:41 Oxygen Delivery Method Room Air 02/19/25 12:41 BMI result Body Mass Index 49.4 Const General: cooperative, comfortable, no acute distress, alert, awake, Physically active, anxious, ill appearing (Frequent dry cough) and well groomed; No diaphoretic, intoxicated appearing, poor hygiene or tired appearing Nutritional Appearance: obese Orientation/consciousness: patient oriented x3 Limitations: no limitations HEENT Head: Yes normal to inspection, Yes normocephalic and Yes atraumatic Ears: hearing grossly normal bilaterally, external ears normal, TM's normal bilaterally, EAC's normal and TM abnormal (Serous otitis) General nose exam: Normal external nose present, Normal nares present, Normal nasal mucous membranes and turbinates present, Normal septum present and No nasal discharge present Face and sinus: Yes normal facial exam, Yes sinuses nontender and Yes face symmetric Mouth: Normal oral and palatal mucosa present, lip normal and tongue normal Throat: Yes posterior oropharynx normal, Yes uvula midline, No peritonsillar mass, No postnasal drainage, No uvular edema and No cobblestoning Eyes General: appearance normal, both eyes and all related structures Neck Neck: Yes normal visual inspection, Yes no lymphadenopathy, Yes trachea midline, Yes supple and No anterior neck swelling Chest Chest palpation & inspection: normal palpation of entire chest wall Resp Effort & Inspection: normal respiratory effort, able to speak in complete sentences, no audible wheezes, Actively coughing (Frequent dry cough), no grunting, not labored, no nasal flaring, no respiratory distress, no retractions, no segmental paradox chest wall movement, no stridor, not tachypneic, no tracheal deviation, no tripod positioning, no use of accessory muscles, No prolonged expiratory phase and symmetric chest movement Auscultation: clear to auscultation bilaterally, no crackles, no rales, no rhonchi, no wheezes, diminished lung sounds and No rub present Percussion: percussion normal Cardio Rate: regular rate Rhythm: regular rhythm Skin Other: Good color, warm and dry Neuro General: patient oriented x3 Psych Appearance: grossly normal Mental Status: mental status grossly normal Speech and movement: Normal speech and movement present Affect: normal affect Attitude: cooperative Thought process: Normal thought process present Insight: Good insight present (Psych) Judgement: Good judgement present (Psych) Assessment & Plan Assessment & Plan (1) Viral syndrome: Code(s): B34.9 - Viral infection, unspecified Plan: Patient is a 69-year-old female with history of diabetes, obesity, hypertension, and asthma who comes to the walk-in clinic about a week after developing upper respiratory infection symptoms. Pending flu COVID and RSV results. She now has a persistent dry cough that she feels is congested in nature, however lung sounds are clear and chest x-ray shows no acute cardiopulmonary disease. Her O2 sat is better today than on recent office visit with no respiratory symptoms, so I think this is baseline for her, and she is in no respiratory distress. She requests acute bronchitis medications of prednisone and azithromycin, as this has been prescribed for her in the past. I did discuss that likely she has a viral syndrome, and respiratory panel is pending. I think it is reasonable to do a short course up of moderate dose of prednisone as she does have a reactive cough, and underlying asthma however. She knows to monitor her sugars as she is diabetic. I also told her she could trial Mucinex/guaifenesin, without the dextromethorphan. This could help her get some phlegm out. I think as she does have comorbidities that could lead to pneumonia or progressive asthma, I did write her for azithromycin. However as this does not seem to be a case of outpatient pneumonia at this point, I did not write for Augmentin in addition to the azithromycin. If symptoms were to persist or worsen, she should follow up, and she should go to the emergency department with worrisome symptoms. She has done this in the past, so I think she is competent to follow up as needed. Orders: Orders SARS-CoV2/FLU/RSV Today J06.9 - Acute upper respiratory infection, unspecified XR chest 2V Today R05.9 - Cough, unspecified Medications: New azithromycin For 250 mg dose pack: take 500 mg today (day 1), then 250 mg for 4 days (days 2-5) PO 6 tabs 0RF prednisone 40 mg (2 x 20 mg) PO DAILY 10 tabs 0RF 5 days Coding Level of Care Code Est Pt Level 4 (20397) Diagnoses Viral syndrome B34.9
== END 2025-02-19 14:15 | disposition home or self-care (01) ==
PROVIDERS: PCP Internal Medicine; Visit Provider Physician Assistant Medical
DX: B34.9 Viral infection, unspecified (principal)

== ENCOUNTER → 2025-02-19 13:32 | Outpatient (BNV) | payer MEDICARE, MEDICAID, SELFPAY | PROVIDERS: PCP Internal Medicine; Visit Provider Radiology Diagnostic Radiology | DX: R05.9 Cough, unspecified (principal) | CPT/HCPCS: 71046 ==